=== PATIENT | male | born 1935 | race Caucasian/White ===

== ENCOUNTER 2019-06-16 11:37 | Inpatient (IN) ==
[2019-06-16 12:26] LABS: BASO# 0.04 X1000 (0.0-0.2); BASO% 0.6 % (0.0-0.8); EOS# 0.29 X1000 (0.0-0.7); HEMATOCRIT 38.1 % (42.0-52.0); HEMOGLOBIN 12.6 g/dL (14.0-18.0); IMM GRAN# 0.02 X1000 (0.0-0.04); IMM GRAN% 0.3 % (0.0-0.5); LYMPH# 1.71 X1000 (1.2-3.4); LYMPH% 23.5 % (20.5-51.1); MCH 30.1 PG (27-31); MCHC 33.1 g/dL (33-37); MCV 90.9 FL (81-99); MONO# 0.59 X1000 (0.11-0.59); MONO% 8.1 % (1.7-9.3); NEUT# 4.62 X1000 (1.4-6.5); NEUT% 63.5 % (42.2-75.2); PLT 191 X1000 (130-400); RBC 4.19 XMIL (4.7-6.1); RDW 15.2 % (11.5-14.5); WBC 7.27 X1000 (4.8-10.8)
[2019-06-16 12:34] LABS: INR 1.01; PROTIME 13.4 Seconds (11.0-16.0)
[2019-06-16 12:35] LABS: PTT 29.4 Seconds (22.3-41.8)
--- NOTE | 2019-06-16 12:38 | Diag Imaging Result Doc PS360 ---
EXAM: CT ABDOMEN/PELVIS W/O CONTRAST 06/16/2019 HISTORY: FLANK PAIN TECHNIQUE: This exam was performed using automated exposure control, adjustment of mA or kV according to patient size, and/or use of iterative reconstruction technique. COMMENT: The current study is compared with 01/08/2013. There is apparent atelectasis in the inferior lingula and lower lobes particularly the left lower lobe. This was not present at the time the previous study. There is a small hiatal hernia. There are small calcified stones layering dependently in the gallbladder neck. There is marked renal atrophy with what appear to be cortical cysts on the left. There is an isodense mass in the mid right renal cortex measuring 2.6 cm in diameter. This was not present at the time the previous study and may represent a solid renal neoplasm. The urinary bladder is not distended but is somewhat thickened in appearance. There are bilateral fat-containing inguinal hernias. There is no evidence of free fluid. There is a penile prosthesis reservoir anteriorly in the pelvis. There is no evidence of appendicitis or bowel obstruction. There is marked diverticulosis in the descending colon and proximal sigmoid colon. There is no definite evidence of diverticulitis. There is stool throughout the colon. There is ankylosis of the symphysis pubis. There are degenerative disc and facet changes in the lumbar spine. IMPRESSION: No evidence of urolithiasis or obstructive uropathy. Constipation. Diverticulosis coli. Possible solid renal neoplasm on the right. Cholelithiasis. Electronically signed by Mitchell Us 06/16/2019 12:35 PM
--- NOTE | 2019-06-16 12:46 | Diag Imaging Result Doc PS360 ---
EXAM: CHEST-1 VIEW 06/16/2019 HISTORY: SOB TECHNIQUE: AP chest COMMENT: There is apparent fibrosis in the left base which was also present on 06/04/2019. There has been no significant change in the appearance of the chest. IMPRESSION: Stable chest. Electronically signed by Mitchell Us 06/16/2019 12:43 PM
[2019-06-16 12:52] LABS: POTASSIUM 3.9 mmol/L (3.5-5.1)
[2019-06-16 12:53] LABS: ALB/GLOB RATIO 1.3; ALBUMIN 3.6 g/dL (3.5-5.0); CREATININE 4.2 mg/dL (0.7-1.2); MAGNESIUM 2.3 mg/dL (1.5-2.7); TOTAL BILIRUBIN 0.36 mg/dL (0.20-1.00); TOTAL PROTEIN 6.3 g/dL (6.3-8.3)
--- NOTE | 2019-06-16 13:31 | PROVIDER DOCUMENTATION ---
This chart was entered by Katie Wolf Scribe, acting as scribe for Edy Petersen MD. HPI-Abdominal Pain/GI Problem - General Chief Complaint: Rectal Bleeding Stated Complaint: PASSING BLOOD Time Seen by Provider: 06/16/19 11:54 Source: patient Allergies/Adverse Reactions: Patient Allergies Allergy/AdvReac Type Severity Reaction Status Date / Time levofloxacin [From Levaquin] Allergy Mild RASH Verified 02/03/19 00:42 rofecoxib [From Vioxx] Allergy Mild SWELLING Verified 02/03/19 00:42 Sulfa (Sulfonamide Allergy Mild RASH Verified 02/03/19 00:42 Antibiotics) [Sulfa(Sulfonamide Antibiotics)] Home Medications: Home Medication List Medication Instructions Recorded Confirmed Last Taken Type Carvedilol [Coreg] 25 mg PO DAILY 07/05/15 02/03/19 01/28/19 19:00 History Furosemide [Lasix] 20 mg PO DAILY 07/05/15 02/03/19 01/27/19 History Insulin Lispro [Humalog] 1 unit SUBQ DIRECTED 07/05/15 02/03/19 01/28/19 13:00 History Losartan [Cozaar] 50 mg PO DAILY 07/05/15 02/03/19 01/28/19 08:00 History Multivit-Min/FA/Lycopen/Lutein 1 each PO DAILY 07/05/15 02/03/19 01/28/19 08:00 History [Centrum Silver Ultra Men's Tab] Simvastatin 20 mg PO QPM 07/05/15 02/03/19 01/27/19 History Insulin Glargine,Hum.rec.anlog 15 unit SQ BID 08/16/17 02/03/19 01/28/19 10:00 History [Basaglar Kwikpen U-100] Melatonin 10 mg PO QHS PRN 08/27/18 02/03/19 01/27/19 History Brimonidine/Timolol Ophth Soln 1 drp BOTH EYES BID 01/24/19 02/03/19 01/28/19 23:00 History [Combigan Ophth Soln] Latanoprost/Pf [Latanoprost 0.005% 1 drp BOTH EYES QHS 01/24/19 02/03/19 01/28/19 23:00 History Eye Drop] - History of Present Illness-ABD Nature of Presenting Problems: 83 year old male presents to the ER with complaint of rectal bleeding that started this am. Pt is currently receiving chemotherapy for melanoma cancer and is a dialysis pt (M, W, F). Pt states he has had several similar episodes in the past of rectal bleeding from diverticulitis. Pt states this am his BM was maroon in color and he passed some blood clots as well. Pt complains of lower abdominal pain. Abdominal Pain Onset Location: reports: RLQ, LLQ Quality of Pain: reports: aching Onset/Duration: reports: this morning Timing: reports: still present Associated Symptoms: reports: other (rectal bleeding) Last BM: this morning Dark Stools Present?: reports: maroon Rectal Bleeding: reports: bleeding without stool (blood clots) Review of Systems - Adult - REVIEW OF SYSTEMS - ADULT Constitutional: denies: chills, fever Gastrointestinal: reports: abdominal pain, rectal bleeding. denies: vomiting Past History - Adult - PAST MEDICAL HISTORY-ADULT Review of Records: reports: Nursing Assessment Review, Medications Reviewed Major Childhood Illnesses: reports: denies history Cardiovascular: reports: HTN Respiratory: reports: sleep apnea Gastrointestinal: reports: denies history Obstetrical/Gynecological: reports: denies history Genitourinary: reports: dialysis, kidney disease (decreased renal function), prostate cancer Musculoskeletal: reports: denies history Neurological: reports: denies history Endocrine/Immune: reports: Diabetes Other Conditions: reports: skin disorder - PRIOR SURGERIES/PROCEDURES Surgical/Procedure History: reports: tonsillectomy, hernia repair, other (prostectomy, urinary sphintcer) - IMMUNIZATION STATUS Childhood Immunizations: See Nurse Assessment Flu Vaccine: See Nurse Assessment - FAMILY HISTORY Family History: reviewed, not pertinent Physical Exam-General - PHYSICAL EXAM-ADULT Initial Vital Signs Reviewed: Yes - CONSTITUTIONAL General Appearance: alert, no apparent distress - EYES Eyes: PERRL/EOMI, pink conjunctivae - HEAD, EARS, NOSE, MOUTH & THROAT HENMT: normocephalic/atraumatic, moist mucous membranes, normal ENT inspection - NECK Neck: supple - RESPIRATORY Respiratory: lungs clear, normal breath sounds - CARDIOVASCULAR Cardiovascular: normal peripheral pulses, regular rate, rhythm - GASTROINTESTINAL (ABDOMEN) Abdominal Exam: negative: guarding, rebound - MUSCULOSKELETAL Back Exam: no CVA tenderness, no vertebral tenderness - SKIN Integumentary: normal turgor, warm/dry - NEUROLOGIC Neurologic: grossly normal, no motor/sensory deficits - PSYCHIATRIC Psych/Mental Status: normal mood/affect, normal thought content, normal thought process, oriented x 3 Progress - PLAN OF CARE/RESULTS Progress/Plan/Lab Results: Vital Signs - 8 hr 06/16/19 11:40 Temperature 97.8 F Pulse Rate 94 H Respiratory Rate 18 Blood Pressure 173/94 O2 Sat by Pulse Oximetry 94 L Result Diagrams: 06/16/19 12:04 06/16/19 12:04 - REASSESSMENT Reassessment #1 Time Reassessed: 13:15 Status: improving (REMAINS ALERT. STABLE IN ER . NORMAL MENTAL STATUS) - EKG 1 Time of EKG reading by physician:: 13:27 EKG Read and Signed by:: Edy Petersen EKG Interpretation (*Must complete 3 of following elements*): Abnormal Rate: 75 Rhythm: normal sinus rhythm QRS: RBB (Incomplete), LVH Comments: possible left atrial enlargement - XRAY 1 XRAY Study: Chest Impression: Normal, See EMR Report (EXAM: CHEST-1 VIEW 06/16/2019 HISTORY: SOB TECHNIQUE: AP chest COMMENT: There is apparent fibrosis in the left base which was also present on 06/04/2019. There has been no significant change in the appearance of the chest. IMPRESSION: Stable chest) XRAY Interpretation: per radiologist - CT/MRI 1 CT Study: Abdomen, Pelvis Impression: Abnormal, See EMR Report (EXAM: CT ABDOMEN/PELVIS W/O CONTRAST 06/16/2019 HISTORY: FLANK PAIN TECHNIQUE: This exam was performed using automated exposure control, adjustment of mA or kV according to patient size, a nd/or use of iterative reconstruction technique. COMMENT: The current study is compared with 01/08/2013. There is apparent atelectasis in the inferior lingula and lower lobes particularly the left lower lobe. This was not present at the time the previous study. There is a small hiatal hernia. There are small calcified stones layering dependently in the gallbladder neck. There is marked renal atrophy with what appear to be cortical cysts on the left. There is an isodense mass in the mid right renal cortex measuring 2.6 cm in diameter. This was not present at the time the previous study and may represent a solid renal neoplasm. The urinary bladder is not distended but is somewhat thickened in appearance. There are bilateral fat-containing inguinal hernias. There is no evidence of free fluid. There is a penile prosthesis reservoir anteriorly in the pelvis. There is no evidence of appendicitis or bowel obstruction. There is marked diverticulosis in the descending colon and proximal sigmoid colon. There is no definite evidence of diverticulitis. There is stool throughout the colon. There is ankylosis of the symphysis pubis. There are degenerative disc and facet changes in the lumbar spine. IMPRESSION: No evidence of urolithiasis or obstructive uropathy. Constipation. Diverticulosis coli. Possible solid renal neoplasm on the right. Cholelithiasis.) CT Results: per radiologist - CONSULTS/PCP/HOSPITALIST Notification #1 *Consult/PCP/Hospitalist*: QUIRINO Vides Time Discussed: 13:19 Reason/Comments: Agreed to Admit Consult Disposition: Admit Departure - Departure Date of Disposition Decision: 06/16/19 Time of Disposition Decision: 13:14 DIAGNOSIS: GI bleed Disposition: ADMITTED INPATIENT 09 Certified Medical Emergency: Emergent Condition: Fair Referrals and Follow-Ups: None,PCP [Primary Care Provider] - - Critical Care Note This patient required my direct & personal management of CC.: No Attestation - Physician/ LILIAM Attestation Patient care was provided by Advanced Practice Provider:: No The physician spent face to face time with patient:: Yes Advanced Practice Provider documentation review:: Supervising physician onsite and consulted in the evaluation and care of this patient. The physician did have a face to face encounter with the patient. This chart was documented by the indicated scribe, (Katie Wolf, Miriam) and accurately reflects the services I performed and decisions made by me, Edy Petersen MD, as attested by the provider's signature.
[2019-06-16] MEDS ORDERED: ZOFRAN IV PRN (14:12)
--- NOTE | 2019-06-16 14:58 | EKG Report ---
Test Performed on : 06/16/2019 1:21:11 PM Test Reason : SOB Blood Pressure : / mmHG Vent. Rate : 075 BPM Atrial Rate : 075 BPM P-R Int : 144 ms QRS Dur : 094 ms QT Int : 390 ms P-R-T Axes : 037 -26 018 degrees QTc Int : 435 ms Normal sinus rhythm. Possible Left atrial enlargement Incomplete right bundle branch block Left ventricular hypertrophy Abnormal ECG When compared with ECG of 09-JUN-2019 21:58, (Unconfirmed) Minimal criteria for Septal infarct are no longer present Unconfirmed Result
--- NOTE | 2019-06-16 16:00 | HISTORY AND PHYSICAL ---
CHIEF COMPLAINT: Blood in stool. HISTORY OF PRESENT ILLNESS: This is a very pleasant, 83-year-old gentleman with a prior history of prostate cancer; end-stage renal disease on Monday, Monday, Monday hemodialysis; recent melanoma who is currently receiving chemotherapy per Dr. Espinoza. He presents to the emergency room after having 2 large bowel movements that were bright red blood with clots after having 2 bowel movements that were maroon color with clots. He has developed some bilateral lower quadrant pain that he stated was relieved after having a bowel movement. Since being in the emergency room, he has had no prior bleeding, although he has had some intermittent aching to bilateral lower quadrants. He states he has done this many years ago having a bleed from diverticulitis. He denies any recent black stools or any constipation. PAST MEDICAL HISTORY: 1. Prostate cancer. 2. Skin cancer. 3. Diabetes mellitus type 2. 4. End-stage renal disease on Monday, Monday, Monday hemodialysis. 5. Hyperlipidemia. 6. Hypertension. 7. Sleep apnea. 8. Prior TIA. 9. Glaucoma. PAST SURGICAL HISTORY: Cataract removal, hernia repair, and transurethral resection of prostate. SOCIAL HISTORY: He denies alcohol, tobacco, or illicit drugs. He is and lives with his . ALLERGIES: Sulfa and Levaquin which cause a rash. Vioxx which causes swelling. HOME MEDICATIONS: List will be obtained by the nursing staff and once verified will be restarted as appropriate. REVIEW OF SYSTEMS: Discussed with patient with pertinent positives stated in HPI. He denied any syncope, dizziness, chest pain, palpitations; any cough, fever, chills, shortness of breath;/ any PND, orthopnea; any nausea, vomiting, diarrhea, constipation; black or bloody vomitus; any hematuria, dysuria, frequency, or urgency. PHYSICAL EXAMINATION: GENERAL: This is an 83-year-old gentleman who is sitting up on the stretcher in the emergency room in no distress. VITAL SIGNS: Blood pressure is 173/90 with heart rate of 94, respirations 18, temperature is 97.8 degrees with room air saturations 94% to 98%. HEENT: Head is normocephalic, atraumatic. Mucous membranes are moist. NECK: Supple. Trachea midline. CARDIOVASCULAR: Regular rate and rhythm. S1 and S2 appreciated. He has no lower extremity edema. Calves are nontender bilateral. Peripheral pulses palpable x4 extremities. PULMONARY: Breath sounds are clear with no increased work of breathing noted. GASTROINTESTINAL: Abdomen is soft. He is tender to palpation to right lower quadrant and suprapubic area. He is nondistended with bowel sounds in all 4 quadrants. NEUROLOGIC: He is alert and oriented x3. SKIN: Warm and dry. LABS: WBC is 7.2 with hemoglobin 12.6, hematocrit 38.1, and platelets of 191,000. Sodium 139, potassium 3.9, BUN 46, creatinine 4.2, with a glucose of 265. CT of the abdomen and pelvis revealed no evidence of urolithiasis or obstructive uropathy, constipation, diverticulosis coli, possible solid renal neoplasm on the right, cholelithiasis. ASSESSMENT AND PLAN: 1. Gastrointestinal bleed. The patient will be admitted to the hospital. We will check hemoglobin and hematocrit at 8:00 tonight. Recheck in the morning. We will consult Dr. Cui as he is established with him. We will give Protonix IV q.12 hours. 2. Chronic kidney disease with Monday, Monday, Monday hemodialysis. We will consult Dr. Frank for medical management. 3. Melanoma currently receiving treatment. We will consult Dr. Espinoza in the morning. 4. A 2.6 cm isodense mass in the mid right renal cortex that is possibly new. I have discussed this with Dr. Espinoza. He is aware. He will follow. 5. Diabetes mellitus type 2. He will be placed on pattern blood glucose with sliding scale insulin. 6. Hypertension. We will identify his home medications and continue as appropriate. 7. For DVT prophylaxis, we will use SCDs. 8. We will identify his home medications and continue as appropriate. 9. We will check a CBC and renal profile daily. 10. Plan was discussed with Dr. Huffman. Further treatments pending hospital course. Patient seen and examined by me face to face, all the laboratory, vitals signs and images were reviewed, Patient presented to the emergency department with bloody stools X 2, he is asymptomatic, no dizziness, no palpitations, no abdominal discomfort, he has a history of cancer followed by Dr Espinoza, also he has a history of ESRD on dialysis, he will be admitted to the medical floor, GI and nephrology will be consulted, we will monitor the H&H, monitor this patient closely, Mustapha Sheppard MD Dictated by QUIRINO Garcia for Mustapha Low MD cc: QUIRINO Garcia MD [facility]
[2019-06-16] MEDS: PROTONIX IV SCH (16:15)
[2019-06-16] MEDS: SODIUM CHLORIDE 0.9% INJ SCH (16:15)
[2019-06-16] MEDS: NS 1,000 ML IV SCH (16:16)
[2019-06-16] MEDS: HUMALOG SUBQ SCH ×2 (18:00→21:11)
[2019-06-16 20:10] LABS: HEMATOCRIT 37.1 % (42.0-52.0); HEMOGLOBIN 11.6 g/dL (14.0-18.0)
[2019-06-16] MEDS: XALATAN 0.005% OPH SOLN BOTH EYES SCH (21:11)
[2019-06-16] MEDS: COMBIGAN OPHTH SOLN BOTH EYES SCH (21:11)
[2019-06-17] MEDS: PROTONIX IV SCH ×2 (03:16→18:36)
[2019-06-17] MEDS: NS 1,000 ML IV SCH (03:40)
[2019-06-17] MEDS: HUMALOG SUBQ SCH ×4 (06:32→21:13)
[2019-06-17 07:02] LABS: BASO# 0.03 X1000 (0.0-0.2); BASO% 0.4 % (0.0-0.8); EOS# 0.34 X1000 (0.0-0.7); EOS% 4.7 % (0.0-10.0); HEMATOCRIT 38.9 % (42.0-52.0); HEMOGLOBIN 12.5 g/dL (14.0-18.0); LYMPH# 1.35 X1000 (1.2-3.4); LYMPH% 18.6 % (20.5-51.1); MCH 29.5 PG (27-31); MCHC 32.1 g/dL (33-37); MCV 91.7 FL (81-99); MONO# 0.63 X1000 (0.11-0.59); MONO% 8.7 % (1.7-9.3); MPV 9.3 FL (7.4-10.4); NEUT# 4.91 X1000 (1.4-6.5); NEUT% 67.6 % (42.2-75.2); PLT 180 X1000 (130-400); RBC 4.24 XMIL (4.7-6.1); RDW 15.3 % (11.5-14.5); WBC 7.26 X1000 (4.8-10.8)
[2019-06-17 07:25] LABS: ALBUMIN 3.4 g/dL (3.5-5.0); CALCIUM 8.7 mg/dL (8.8-10.2); CREATININE 5.2 mg/dL (0.7-1.2); PHOSPHORUS 5.4 mg/dL (2.7-4.5); POTASSIUM 4.1 mmol/L (3.5-5.1)
[2019-06-17] MEDS ORDERED: TIGHT: 0.2 ML/HR FOR DIALYSIS MISC PRN (07:41)
[2019-06-17] MEDS ORDERED: HEPARIN IV PRN (07:41)
[2019-06-17] MEDS ORDERED: NS 2,000 ML MISC PRN (07:41)
[2019-06-17] MEDS: COMBIGAN OPHTH SOLN BOTH EYES SCH ×2 (08:46→21:13)
[2019-06-17] MEDS: COREG PO SCH (08:48)
--- NOTE | 2019-06-17 10:11 | CONSULTATION ---
DATE OF CONSULTATION: 06/17/2019 REASON FOR ADMISSION: Melena. REASON FOR CONSULTATION: ESRD, assist with management. CONSULTING PHYSICIAN: Dr. Huffman. HISTORY OF PRESENT ILLNESS: This is an 83-year-old gentleman, well known to our service for end- stage renal disease, on dialysis Monday, Monday, Monday at the [facility]. The patient was recently diagnosed with melanoma, and is receiving chemotherapy per Dr. Espinoza. He came into the emergency room on the day of admission secondary to blood in the stool. This was maroon in color with clots. He has had no further bleeding noted. He was admitted for further workup and treatment. We have been asked to see him and assist with management and maintain his dialysis schedule. This morning, he is awake and alert. He denies any nausea or vomiting, and states he would like to eat breakfast before he goes to his dialysis treatment. PAST MEDICAL HISTORY: Prostate cancer, melanoma, diabetes type 2, hyperlipidemia, hypertension, sleep apnea, TIA, glaucoma, and end-stage renal disease on dialysis Monday, Monday, Monday. PAST SURGICAL HISTORY: Cataract removal, hernia repair, and TURP. ALLERGIES: Levaquin, Vioxx, sulfa. HOME MEDICATIONS: Listed as simvastatin, Centrum, Lasix, Cozaar, Humalog insulin, Phenergan, melatonin, Combigan, latanoprost, Norvasc, vitamin D3. FAMILY HISTORY: Noncontributory. SOCIAL HISTORY: No ETOH, tobacco, or illicit drug use. He is . He lives with his . There is no family today at the bedside. REVIEW OF SYSTEMS: Bloody stools, otherwise negative. PHYSICAL EXAMINATION: Vital Signs: Temperature 98.9 degrees, pulse 80, respiratory rate 17, blood pressure 138/57. Intake was 900 mL. Output has not been measured. General: This is an elderly gentleman, sitting up in the bed. He is awake and alert. He is in no acute distress. HEENT: Normocephalic, atraumatic. JANIYA. Conjunctivae are pale. His oral mucosa is moist. Neck: Supple. There is no JVD. Cardiovascular: Regular rate and rhythm. There is no murmur noted. Pulmonary: He is clear bilaterally. He has no increased work of breathing. Abdomen: Soft with positive bowel sounds. Denies tenderness, other than right lower quadrant. : He is voiding. Extremities: There is no clubbing, cyanosis, edema. Integumentary: His skin is warm and dry. Neurologic: Grossly nonfocal. LABORATORY DATA: WBC 7.2, hemoglobin 12.5. Sodium 143, potassium 4.1, CO2 of 22, creatinine 5.2. IMAGING: CT of the abdomen and pelvis with no obstructive uropathy. ASSESSMENT AND PLAN: 1. Chronic kidney disease 5D. Today is his routine dialysis day. Will dialyze him on a 2- potassium bath/ultrafiltrate to his dry weight, 3.5 hour treatment. 2. Gastrointestinal bleed. Followed by primary and Gastroenterology. 3. Electrolytes and acid-base balance. These are acceptable. Continue with routine dialysis for management. 4. Melanoma. Follow with Dr. Espinoza. His nurse practitioner saw him today. 5. Fluid volume. He is not overloaded. Dictated by QUIRINO Hernandez for Juan Daniel Frank MD Face to face encounter, data reviewed, discussed with Bipin Rodney on 06/17/19. I agree with the above assessment and plan of care. cc: Juan Daniel Frank MD [facility]
--- NOTE | 2019-06-17 13:21 | HEMO/ONC CONSULTATION ---
DATE: 06/17/2019 CHIEF COMPLAINT: Blood in stool. HISTORY OF PRESENT ILLNESS: Mr. Singh is a pleasant, 83-year-old male whom we treat in the office for unresectable squamous cell skin cancer. He also has end-stage renal disease and does dialysis on Monday, Monday, Monday. He is followed by Dr. Frank. On Monday afternoon, he presented to the ER after having 2 large bowel movements that were bright red in color with clots, as well as 2 bowel movements which were maroon in color. He states he had some bilateral lower quadrant pain that was relieved after having a bowel movement. He has not had any further bleeding since coming to the ER. He does mention that he has had a past history of diverticulitis. We currently treat the patient in the clinic for unresectable squamous skin cancer with Libtayo, an immunotherapy, every 3 weeks. The patient's last treatment was June 06. He has not had any complications, adverse reactions, or side effects to his treatment. PAST MEDICAL HISTORY: Prostate cancer with prostatectomy, diabetes, hypertension, end-stage renal disease with dialysis Monday, Monday, Monday, squamous cell skin cancer, hyperlipidemia, sleep apnea, prior TIA, and glaucoma. PAST SURGICAL HISTORY: Cataract removal, hernia repair, prostatectomy. SOCIAL HISTORY: He denies alcohol, tobacco, or illicit drug use. ALLERGIES: Sulfa drugs, Levaquin, and Vioxx. HOME MEDICATIONS: Norvasc, Combigan ophthalmic solution, weekly vitamin D2, Lasix, insulin glargine, insulin lispro, latanoprost eyedrops, losartan, melatonin, Centrum Silver, and simvastatin. REVIEW OF SYSTEMS: The pertinent positives are stated in the HPI. VITAL SIGNS: Temperature 99.7 degrees, pulse rate 76, respiratory rate 16, blood pressure 191/59, O2 saturation 98% on room air. He is currently in 0/10 pain. PHYSICAL EXAMINATION: General: Elderly gentleman in no acute distress. Well- developed, well- nourished. Skin: [place], warm, dry, and intact without rashes or lesions. There are healing stages of skin cancer to his head and face. HEENT: Sclerae are anicteric. PERRLA. Oral mucosa is pink and moist. Cardiovascular: Normal S1, S2. Heart rate and rhythm regular. Respiratory: No signs of respiratory distress. Lung sounds are clear to auscultation. Abdomen: Soft, nontender without distention. Lymphatic: No lymphadenopathy appreciated to neck or axillae. Neurological: Awake, alert, and oriented. No gait abnormalities appreciated. LABORATORY: WBCs 7.26, hemoglobin 12.5, hematocrit 38.9, platelet count 180,000, ANC 4.91. Creatinine 5.2, calcium 8.7, phosphorus 5.4. RADIOLOGY: CT of abdomen and pelvis without contrast shows diverticulosis coli and possible solid renal neoplasm on the right. Chest x-ray shows no significant changes since his last chest x-ray with no acute abnormalities. ASSESSMENT: 1. Gastrointestinal bleed. 2. Chronic kidney disease with Monday, Monday, Monday hemodialysis. 3. Unresectable squamous cell skin cancer, on immunotherapy currently. 4. Right solid renal neoplasm. PLAN: Treat the patient per Dr. Cui and medical management for the GI bleeding. We will follow up with the patient in the clinic for a possible PET scan and further management. Dictated by QUIRINO Jaquez for Guanakito Espinoza MD Patient seen and examined. As above. Patient known to us for unresectable squamous cell carcinoma. He is on immunotherapy with excellent response. He presented with GI bleeding. H and H is stable today. Dr. Cui has been consulted. CT scan of the abdomen pelvis reveals a small right solid renal mass. We will continue to monitor this for now. He does not require any therapy for this. Guanakito Espinoza M.D. cc: Guanakito Espinoza MD [facility]
[2019-06-17] MEDS: NORVASC PO SCH ×2 (13:58→21:13)
[2019-06-17] MEDS: COZAAR PO SCH ×2 (13:59→21:13)
[2019-06-17] MEDS: LASIX PO SCH (14:00)
--- NOTE | 2019-06-17 14:14 | GASTROENTEROLOGY CONSULTATION ---
DATE: 06/17/2019 REASON FOR CONSULTATION: Blood in the stool. HISTORY OF PRESENT ILLNESS: This is an 83-year-old, male who we had seen in the past for a colonoscopy. He had a colonoscopy in March 2017, indications at that time for diarrhea. Findings showed diverticulosis with no evidence of colon polyps. Patient is seen at the time of evaluation in the dialysis unit. He is receiving dialysis. He has been on dialysis following with Dr. Frank for approximately 3 years. He receives dialysis on Mondays, Wednesdays, and Fridays. The patient has also had recent diagnosis of melanoma and has been following with Dr. Espinoza for chemotherapy. He reports having 2 bowel movements that were bright red/maroon color with clots noted. Since admission, he has had no further bowel movements or rectal bleeding. He did report some lower abdominal pain/cramping. Currently his hemoglobin and hematocrit have been stable since admission. Hemoglobin and hematocrit on admission were 11.6 in 37.1. Today, his hemoglobin and hematocrit are 12.5 and 38.9. The patient has not received packed red blood cells. The patient had denied nausea or vomiting. No reported hematemesis. No reported fever. Patient does report having rectal bleeding in the past, possibly related to diverticulitis. As noted, his last colonoscopy was in 2016 that showed diverticulosis. PAST MEDICAL HISTORY: 1. History of prostate cancer. 2. Recent melanoma, following with Dr. Espinoza for chemotherapy. 3. Diabetes. 4. End-stage renal disease on dialysis. 5. Hyperlipidemia. 6. Hypertension. 7. Sleep apnea. 8. History of TIA. 9. Glaucoma. PAST SURGICAL HISTORY: 1. Cataract removal. 2. Hernia repair. 3. Prostate resection. 4. Colonoscopy in 2017 showing diverticulosis. ALLERGIES: 1. Levaquin causing a rash. 2. Vioxx causing swelling. 3. Sulfonamide antibiotics causing rash. HOME MEDICATIONS: 1. Norvasc 2.5 mg twice a day. 2. Eye drops twice a day. 3. Vitamin D 50,000 units every 7 days. 4. Lasix 20 mg daily. 5. Insulin 15 units twice a day. 6. Eye drops. 7. Losartan 50 mg every night. 8. Losartan 100 mg every morning. 9. Melatonin 10 mg every night as needed. 10. Centrum Men's multivitamin daily. 11. Simvastatin 20 mg every night. SOCIAL HISTORY: He is . No reported tobacco or alcohol use. REVIEW OF SYSTEMS: Per history of present illness. PHYSICAL EXAMINATION: Vital Signs: Temperature 99.7 degrees, pulse 76, respirations 16, blood pressure 191/59. General: Patient is awake and alert. No acute distress. He was seen in the dialysis unit receiving dialysis. HEENT: Normocephalic, atraumatic. Pupils equal, round, reactive to light. Sclerae nonicteric. Cardiovascular: Regular rate and rhythm. Respiratory: Lung sounds essentially clear. Gastrointestinal: Abdomen is soft. He does have some tenderness in the lower abdomen. Positive bowel sounds. Neurological: Cranial nerves 2-12 grossly intact. Patient is alert and oriented to person, place, and time. DIAGNOSTIC RESULTS/LABORATORY: Hematology: WBC 7.26, hemoglobin 12.5, hematocrit 38.9, MCV 91.7. Coagulation: ProTime 13.4, INR 1.01. PTT 29.4. Chemistry: Sodium 143, potassium 4.1, chloride 108, CO2 of 22, BUN 51, creatinine 5.2, glucose 180, calcium 8.7, phosphorus 5.4, magnesium 2.3, total bilirubin 0.36, AST 14, ALT 12: Alkaline phosphatase 112, albumin 3.4. ASSESSMENT AND PLAN: 1. Recent rectal bleeding. Patient has not had any further bleeding since admission. His hemoglobin and hematocrit are stable. Continue PPI. Will continue to monitor for further bleeding. Monitor hemoglobin and hematocrit. Transfuse packed red blood cells if needed. 2. Diverticulosis by colonoscopy in 2017. 3. Melanoma, following with Dr. Espinoza. 4. CT scan showing no evidence of urolithiasis. Constipation noted, diverticulosis. There was a possible solid renal neoplasm on the right and cholelithiasis. I believe Dr. Espinoza is aware of these findings. 5. Other medical problems: Diabetes, hypertension, end-stage renal disease, following with Nephrology for his routine dialysis. PLAN: We will continue to follow his hemoglobin and hematocrit and follow for further active bleeding. At this time, we will not pursue endoscopy unless bleeding returns or his hemoglobin and hematocrit drop. We will continue to follow. Further plans will be made as needed. I have discussed this case with Dr. Cui. Thank you for this consultation. Dictated by QUIRINO Ramsey for Keith Cui MD cc: QUIRINO Verde MD
--- NOTE | 2019-06-17 17:02 | PROGRESS NOTE ---
DATE: 06/17/2019 SUBJECTIVE: He has no primary care physician, but he was admitted here. He had noticed blood in his stool. He is an 83-year-old gentleman with a prior history of prostate cancer, end-stage renal disease, gets dialysis Mondays, Wednesdays, and Fridays, hemodialysis. Recently he had melanoma, receiving chemotherapy per Dr. Espinoza. Presented to the emergency room for 2 large bowel movements with bright red blood and clots after 2 bowel movements that were maroon in color with clots. He developed some bilateral lower quadrant pain that was relieved after his bowel movement. Since be in the emergency room he has had no other bleeding. He has not had any bleeding since he has been here by his report. PAST MEDICAL HISTORY: Reviewed again. 1. Prostate cancer. 2. Skin cancer, melanoma. 3. Diabetes mellitus type 2. 4. End-stage renal disease, on dialysis Mondays, Wednesdays, Fridays. 5. Hyperlipidemia. 6. Hypertension. 7. Sleep apnea. 8. Prior TIA. 9. Glaucoma. PAST SURGICAL HISTORY: Cataract removed, hernia repair, transurethral resection of prostate. So admitted with gastrointestinal bleed. OBJECTIVE: General: On exam today he is comfortable. He had dialysis today. Vital signs: Temp 97.7 degrees, pulse 76, respirations 16, blood pressure 191/59, previous 1 was 185/69. HEENT: Pupils are equal and round. Lungs: Clear in all lung bunch. Cardiovascular: Regular rhythm and rate without murmur or S3. LABORATORY: Blood sugar 274 and 165. His blood counts when he presented, white count 7,270, hematocrit 38, platelet count 191,000. Hematocrit has remained stable at 38. Dr. Cui has evaluated. ASSESSMENT AND PLAN: 1. Recent rectal bleeding. He has not had any further bleeding since admission. We will follow hemoglobin and hematocrit. Continue proton pump inhibitor. Transfuse packed red blood cells if needed. 2. Diverticulosis by colonoscopy in 2017. 3. Melanoma. Has been treated by Dr. Espinoza. Under treatment at this time with chemotherapy. 4. CT scan showed no evidence of urolithiasis. Constipation was noted and diverticulosis. There is a possible solid renal neoplasm on the right and there is some cholelithiasis. Dr. Espinoza is following. 5. End-stage renal disease, chronic kidney disease stage 5. Getting hemodialysis. His volume status and electrolytes look appropriate. 6. Hypertension. 7. Gastrointestinal blood loss. As mentioned above and follow hemoglobin and hematocrit. 8. In looking at his orders, he gets Cozaar 50 mg at bedtime, Norvasc 2.5 mg b.i.d., Coreg 25 mg p.o. daily, Lasix 20 mg a day, Cozaar 100 mg q.a.m. and then he gets 50 mg at bedtime, Protonix 40 mg IV q.12. Blood pressure is running a little bit high, will watch. cc: Bj Vázquez MD
[2019-06-17] MEDS: XALATAN 0.005% OPH SOLN BOTH EYES SCH (21:18)
[2019-06-18] MEDS: HUMALOG SUBQ SCH ×4 (06:10→20:57)
[2019-06-18] MEDS: PROTONIX IV SCH ×2 (06:16→17:20)
[2019-06-18 07:26] LABS: BASO# 0.03 X1000 (0.0-0.2); BASO% 0.4 % (0.0-0.8); EOS# 0.29 X1000 (0.0-0.7); EOS% 3.8 % (0.0-10.0); HEMATOCRIT 42.5 % (42.0-52.0); HEMOGLOBIN 13.7 g/dL (14.0-18.0); IMM GRAN# 0.02 X1000 (0.0-0.04); IMM GRAN% 0.3 % (0.0-0.5); LYMPH# 1.51 X1000 (1.2-3.4); LYMPH% 19.9 % (20.5-51.1); MCH 29.7 PG (27-31); MCHC 32.2 g/dL (33-37); MCV 92.2 FL (81-99); MONO# 0.63 X1000 (0.11-0.59); MONO% 8.3 % (1.7-9.3); MPV 9.2 FL (7.4-10.4); NEUT% 67.3 % (42.2-75.2); PLT 188 X1000 (130-400); RBC 4.61 XMIL (4.7-6.1); RDW 15.4 % (11.5-14.5); WBC 7.58 X1000 (4.8-10.8)
[2019-06-18 07:53] LABS: CALCIUM 9.2 mg/dL (8.8-10.2); CREATININE 4.2 mg/dL (0.7-1.2); PHOSPHORUS 4.5 mg/dL (2.7-4.5); POTASSIUM 3.8 mmol/L (3.5-5.1)
--- NOTE | 2019-06-18 08:26 | NEPHROLOGY CONSULTATION ---
DATE: 06/18/2019 SUBJECTIVE: Patient resting in bed. He states he has not gotten up out of bed yet. Underwent dialysis yesterday without difficulty. OBJECTIVE: Vital Signs: Temperature 98 degrees, pulse 81, respiratory rate 19, blood pressure 131/77. Intake 200 mL; output not measured. General: This is an elderly gentleman resting in bed. He is awake and alert. He is in no acute distress. HEENT: Normocephalic, atraumatic. JANIYA. Neck: Supple without JVD. Cardiovascular: Regular rate and rhythm. Pulmonary: Clear bilaterally. Abdomen: Soft, with positive bowel sounds. : Not inspected. Extremities: No clubbing, cyanosis or edema. Integumentary: Skin is warm and dry. LAB DATA: Pending. ASSESSMENT AND PLAN: 1. Chronic kidney disease 5 D. He dialyzed yesterday without difficulty. We will plan to continue on his routine dialysis while he is in the hospital. 2. Gastrointestinal bleed followed by Primary and Gastroenterology. 3. Melanoma followed by Dr. Espinoza. 4. Deconditioning. We have requested that a chair be placed in the patient's room that he is able to safely get up to and sit for meals. Dictated by QUIRINO Hernandez for Juan Daniel Frank MD Face to face encounter, data reviewed, discussed with Bipin Rodney on 06/18/19. I agree with the above assessment and plan of care. cc: Juan Daniel Frank MD [facility]
[2019-06-18] MEDS: COMBIGAN OPHTH SOLN BOTH EYES SCH ×2 (08:53→20:20)
[2019-06-18] MEDS: COZAAR PO SCH ×2 (08:55→20:19)
[2019-06-18] MEDS: COREG PO SCH (08:56)
[2019-06-18] MEDS: LASIX PO SCH (08:56)
[2019-06-18] MEDS: NORVASC PO SCH ×2 (08:56→20:20)
--- NOTE | 2019-06-18 13:26 | GASTROENTEROLOGY PROGRESS NOTE ---
DATE: 06/18/2019 SUBJECTIVE: The patient denies complaints today. He has had no further rectal bleeding. He did report having a bowel movement without any noted blood. His hemoglobin and hematocrit have increased today. He has not received blood transfusions since admission. He received dialysis yesterday. OBJECTIVE: Vital Signs: Temperature 98.8 degrees, pulse 63, respirations 15, blood pressure 144/71. General: Patient is awake and alert, no acute distress. LABORATORY: Hematology: WBC 7.58, hemoglobin 13.7, hematocrit 42.5, MCV 92.2, platelet 188. Coagulation pro time 13.4, INR 1.01, PTT 29.4. Chemistry: Sodium 144, potassium 3.8, chloride 101, CO2 28. BUN 31, creatinine 4.2, glucose 172, calcium 9.2, phosphorus 4.5. ASSESSMENT AND PLAN: 1. Rectal bleeding seems to have resolved. He has a stable hemoglobin and hematocrit. 2. End-stage renal disease. Patient received dialysis yesterday. 3. A CT scan showed no evidence of urolithiasis. Constipation was noted along with diverticulosis. Possible solid renal neoplasm on the right. Dr. Espinoza is following the patient. 4. History of diverticulosis by colonoscopy in 2017. PLAN: Patient has had no further rectal bleeding since admission. Hemoglobin and hematocrit is stable and has actually increased over the last 2 days since his admission. CT scan showed constipation. We will start patient on Dara-Colace 2 tablets every night, and he can adjust the dosage according to his response once he is discharged. We will continue to follow. Once he is discharged, recommend he follow up with us an outpatient. I have discussed this case with Dr. Cui. Dictated by QUIRINO Ramsey for Keith Cui MD cc: QUIRINO Verde MD
--- NOTE | 2019-06-18 17:09 | PROGRESS NOTE ---
DATE: 06/18/2019 SUBJECTIVE: Mr. Singh has not had any further bleeding. No nausea or vomiting. No comfort. His hematocrit is stable at 42, hemoglobin 13. Electrolytes look good. Volume status looks good. OBJECTIVE: Vital Signs: Temperature 98.8 degrees, pulse 63, respirations 15, blood pressure 144/71. HEENT: Pupils are equal and round. Lungs: Clear in all lung bunch. Cardiovascular: Regular rhythm and rate without murmur or S3. DIAGNOSTIC STUDIES: Blood sugars 229, 128, and 323. ASSESSMENT AND PLAN: 1. Rectal bleeding seems to have resolved. Stable hemoglobin and hematocrit. Plan to let him go home tomorrow. History of diverticulosis per colonoscopy in 2017. CT showed constipation so the patient put on Dara-Colace 2 tablets every night and then can adjust this with discharge. So, plan to let him go after dialysis tomorrow. 2. End-stage renal disease. Volume status and electrolytes look good. 3. CT scan showed no evidence of urolithiasis. Constipation was noted so her was put on Dara- Colace. He feels good, so hopefully he can go home tomorrow. cc: Bj Vázquez MD
[2019-06-18] MEDS: SODIUM CHLORIDE 0.9% INJ SCH (17:21)
[2019-06-18] MEDS: XALATAN 0.005% OPH SOLN BOTH EYES SCH (20:20)
[2019-06-18] MEDS ORDERED: PERICOLACE PO SCH (21:00)
[2019-06-19] MEDS: SODIUM CHLORIDE 0.9% INJ SCH (04:47)
[2019-06-19] MEDS: PROTONIX IV SCH (04:47)
[2019-06-19] MEDS: HUMALOG SUBQ SCH ×2 (06:09→14:16)
[2019-06-19] MEDS ORDERED: NS 2,000 ML MISC PRN (06:14)
[2019-06-19] MEDS ORDERED: TIGHT: 0.2 ML/HR FOR DIALYSIS MISC PRN (06:14)
[2019-06-19] MEDS ORDERED: HEPARIN IV PRN (06:14)
[2019-06-19 07:06] LABS: BASO# 0.02 X1000 (0.0-0.2); BASO% 0.3 % (0.0-0.8); EOS# 0.35 X1000 (0.0-0.7); EOS% 4.4 % (0.0-10.0); HEMATOCRIT 37.7 % (42.0-52.0); HEMOGLOBIN 11.8 g/dL (14.0-18.0); IMM GRAN# 0.02 X1000 (0.0-0.04); IMM GRAN% 0.3 % (0.0-0.5); LYMPH# 1.94 X1000 (1.2-3.4); LYMPH% 24.6 % (20.5-51.1); MCH 28.9 PG (27-31); MCHC 31.3 g/dL (33-37); MCV 92.4 FL (81-99); MONO# 0.73 X1000 (0.11-0.59); MONO% 9.2 % (1.7-9.3); MPV 9.4 FL (7.4-10.4); NEUT# 4.84 X1000 (1.4-6.5); NEUT% 61.2 % (42.2-75.2); PLT 179 X1000 (130-400); RBC 4.08 XMIL (4.7-6.1); RDW 15.2 % (11.5-14.5)
[2019-06-19 07:21] VITALS: BP 146/63
[2019-06-19 07:32] LABS: ALBUMIN 3.4 g/dL (3.5-5.0); CALCIUM 8.9 mg/dL (8.8-10.2); CREATININE 5.2 mg/dL (0.7-1.2); PHOSPHORUS 5.6 mg/dL (2.7-4.5); POTASSIUM 4.5 mmol/L (3.5-5.1)
[2019-06-19] MEDS: COMBIGAN OPHTH SOLN BOTH EYES SCH (08:23)
[2019-06-19] MEDS: NORVASC PO SCH (08:24)
[2019-06-19] MEDS: LASIX PO SCH (08:24)
[2019-06-19] MEDS: COZAAR PO SCH (08:24)
[2019-06-19] MEDS: COREG PO SCH (08:25)
--- NOTE | 2019-06-19 13:33 | NEPHROLOGY PROGRESS NOTE ---
DATE: 06/19/2019 SUBJECTIVE: The patient is resting in bed. He states he has gotten to the chair but he has not walked up and down the howe yet. OBJECTIVE: Vital Signs: Temperature 98.1, pulse 72, respiratory rate 19, blood pressure 143/68. Intake 1.2 L. Output 700 mL. Physical Examination: General: Elderly gentleman, resting in bed. No acute distress. HEENT: Normocephalic, atraumatic. Conjunctivae are pale. Oral mucosa moist. Neck: Supple. No JVD. Cardiovascular: Regular rate and rhythm. Pulmonary: Clear bilaterally. Abdomen: Soft. Positive bowel sounds. : Minimal void, hemodialysis assist. Extremities: No clubbing, cyanosis, edema. Integumentary: Skin is warm and dry. Lab Data: Sodium 143, potassium 4.5, CO2 of 25, creatinine 5.2, phosphorus 5.6, albumin 3.4. ASSESSMENT AND PLAN: 1. Chronic kidney disease 5D. Today is his routine dialysis day. We will put him a 2 K bath, ultrafiltration to his dry weight, 4 hour treatment. 2. Gastrointestinal bleed. He has had no further episodes. 3. Disposition. Likely will go home in the next day or so. We will continue his dialysis as long as he is in the hospital and then he can transition back over to his routine outpatient. Dictated by QUIRINO Hernandez for Juan Daniel Frank MD Face to face encounter, data reviewed, discussed with Bipin Rodney on 06/19/19. I agree with the above assessment and plan of care. cc: Juan Daniel Frank MD [facility]
--- NOTE | 2019-06-19 13:36 | DISCHARGE SUMMARY ---
ADMISSION DATE: 06/16/2019 DISCHARGE DATE: 06/19/2019 HOSPITAL COURSE: He is followed by Dr. Frank. He presented complaining of blood in the stool. This is an 83-year-old gentleman, prior history of prostate cancer, end-stage renal disease, and gets dialysis Mondays, Wednesdays, and Fridays. Recent melanoma, receiving chemotherapy per Dr. Espinoza. Presented to the emergency room after 2 large bowel movements with bright red blood in the commode and clots to bowel movements which were more maroon in color. Developed some bilateral lower quadrant pain. Stated that the pain was relieved after his bowel movement. Since being in the emergency room, he has had no prior bleeding. Since being in the hospital, he has had no further bleeding. No abdominal pain. Hematocrit has remained stable. Hemoglobin remained stable. Dr. Cui has evaluated. PAST MEDICAL HISTORY: 1. Prostate cancer. 2. Skin cancer. 3. Diabetes mellitus type 2. 4. End-stage renal disease gets dialysis Mondays, Wednesdays, Fridays. 5. Hyperlipidemia. 6. Hypertension. 7. Sleep apnea. 8. Prior TIA's. 9. Glaucoma PAST SURGICAL HISTORY: Cataract removal, hernia repair, transurethral resection of prostate. ADMISSION DIAGNOSES: 1. Questionable gastrointestinal bleed, lower gastrointestinal bleed was evaluated per Dr. Cui. Hematocrit, hemoglobin remained stable. He had no further sign of bleeding, and so put him on high-dose Protonix. 2. Chronic kidney disease. Continues dialysis Mondays, Wednesdays, and Fridays. His volume status, electrolytes look good. Hematocrit stable. 3. 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 This is possibly new and this was discussed with Dr. Espinoza. He is aware. 4. Diabetes mellitus type 2. Blood sugars controlled. 5. Hypertension. Blood pressure well controlled. So, felt he could go home on 06/19/2019, and we will discharge him on home medications; Norvasc 2.5 mg a day, Combigan ophthalmic solution 1 drop each eye b.i.d. vitamin D 50,000 units q. week, Lasix 20 mg a day, insulin glargine 15 units b.i.d., Latanoprost eyedrops 0.005% both eyes at bedtime, Cozaar 50 mg at bedtime and 200 mg q.a.m., melatonin 10 mg at bedtime, multivitamin daily, simvastatin 20 mg q.p.m. cc: Bj Vázquez MD
--- NOTE | 2019-06-19 13:47 | GASTROENTEROLOGY PROGRESS NOTE ---
DATE: 06/19/2019 SUBJECTIVE: Patient is currently seen in the dialysis unit. He denies any further signs of rectal bleeding. He has had a bowel movement today. CT scan has shown constipation. He was started on Dara-Colace every night. OBJECTIVE: Vital Signs: Temperature 98.2 degrees, pulse 67, respirations 18, blood pressure 146/63. General: Patient is awake and alert, in no acute distress. DIAGNOSTIC STUDIES: Hematology: WBC 7.90, hemoglobin 11.8, hematocrit 37.7. Chemistry: Sodium 143, potassium 4.5, chloride 105, CO2 of 25, BUN 54, creatinine 5.2, glucose 162. CT scan on 06/16/2019 showed constipation, diverticulosis, possible solid renal neoplasm on the right, and cholelithiasis. ASSESSMENT AND PLAN: 1. Recent rectal bleeding has resolved. Hemoglobin and hematocrit have been stable. 2. End-stage renal disease. Patient receiving his scheduled dialysis today. 3. CT scan showing constipation. Dara-Colace 2 tablets every night was added. 4. History of diverticulosis by colonoscopy in 2017. PLAN: Patient has had no further rectal bleeding since admission. Hemoglobin and hematocrit have remained stable. CT scan has shown constipation, and he was started on Dara-Colace 2 tablets every night. Patient is hoping to be discharged after his dialysis today. Recommend he follow up with us as an outpatient. Further plans to be made according to his progress. I have discussed this case with Dr. Cui. Dictated by QUIRINO Ramsey for Keith Cui MD cc: QUIRINO Verde MD
[2019-06-19] MEDS ORDERED: PROTONIX PO SCH (14:30)
== END 2019-06-19 15:46 | disposition home or self-care (01) | DRG 377 ==
LOC: ED 11:37 → 1N 15:12 → SUATTDRO 15:12
PROVIDERS: ATTEND Emergency Medicine

== ENCOUNTER 2019-08-25 22:10 | Inpatient (IN) ==
[2019-08-25] MEDS ORDERED: ASPIRIN ONE (22:35)
[2019-08-25 22:59] LABS: BASO# 0.01 X1000 (0.0-0.2); BASO% 0.2 % (0.0-0.8); HEMOGLOBIN 11.9 g/dL (14.0-18.0); IMM GRAN# 0.04 X1000 (0.0-0.04); IMM GRAN% 0.6 % (0.0-0.5); LYMPH# 0.43 X1000 (1.2-3.4); LYMPH% 6.9 % (20.5-51.1); MCH 29.2 PG (27-31); MCHC 31.3 g/dL (33-37); MCV 93.4 FL (81-99); MONO# 0.05 X1000 (0.11-0.59); MONO% 0.8 % (1.7-9.3); MPV 9.4 FL (7.4-10.4); NEUT# 5.74 X1000 (1.4-6.5); NEUT% 91.5 % (42.2-75.2); PLT 196 X1000 (130-400); RBC 4.07 XMIL (4.7-6.1); RDW 14.4 % (11.5-14.5); WBC 6.27 X1000 (4.8-10.8)
[2019-08-25 23:15] LABS: INR 0.97
[2019-08-25 23:16] LABS: PTT 27.8 Seconds (22.3-41.8)
[2019-08-25 23:34] LABS: ALB/GLOB RATIO 1.2; ALBUMIN 3.8 g/dL (3.5-5.0); CALCIUM 9.5 mg/dL (8.8-10.2); POTASSIUM 5.3 mmol/L (3.5-5.1); TOTAL BILIRUBIN 0.31 mg/dL (0.20-1.00); TOTAL PROTEIN 7.1 g/dL (6.3-8.3)
[2019-08-26] MEDS ORDERED: HUMULIN R IV ONE (00:04)
[2019-08-26] MEDS ORDERED: LASIX IV ONE (00:04)
[2019-08-26] MEDS ORDERED: LABETALOL IV ONE (00:23)
[2019-08-26] MEDS ORDERED: NITROGLYCERIN SL PRN (01:55)
[2019-08-26] MEDS ORDERED: NITROGLYCERIN SL ONE (01:55)
[2019-08-26] MEDS ORDERED: APRESOLINE IV ONE (01:56)
[2019-08-26] MEDS ORDERED: MORPHINE IV PRN (03:38)
[2019-08-26] MEDS ORDERED: ZOFRAN IV PRN (03:38)
[2019-08-26] MEDS ORDERED: TYLENOL PO PRN (03:38)
[2019-08-26 04:04] LABS: BE -3.1 mmoll (-2.0-2.0); BLOOD TYPE VENOUS; HCO3-(ACT) 22.4 mmoll (22-27); PCO2(98.6) 33 mmHg (40-60); PO2(98.6) 74 mmHg (30-55); SAMPLE BLOOD; SAO2 96.9 % (40.0-85.0); pH(98.6) 7.41 (7.32-7.43)
[2019-08-26] MEDS: HEPARIN SUBQ SCH ×2 (04:21→16:38)
[2019-08-26] MEDS ORDERED: MELATONIN PO PRN (06:10)
[2019-08-26] MEDS: PRILOSEC PO SCH (06:13)
[2019-08-26] MEDS ORDERED: VITAMIN D PO SCH (06:15)
[2019-08-26] MEDS: NITROGLYCERIN TOP SCH ×4 (06:17→21:48)
[2019-08-26] MEDS ORDERED: HUMALOG SUBQ SCH (07:00)
[2019-08-26] MEDS: CENTRUM SILVER PO SCH ×2 (07:54→09:20)
[2019-08-26] MEDS: LANTUS INSULIN SUBQ SCH ×3 (07:54→20:20)
[2019-08-26] MEDS: HUMALOG SUBQ SCH ×5 (07:54→20:20)
[2019-08-26] MEDS: NORVASC PO SCH ×3 (07:55→20:19)
[2019-08-26] MEDS: LASIX PO SCH ×2 (07:55→09:21)
[2019-08-26] MEDS: APRESOLINE PO SCH ×2 (07:55→09:20)
[2019-08-26] MEDS: ASPIRIN PO SCH ×2 (07:55→09:20)
[2019-08-26] MEDS: COMBIGAN OPHTH SOLN BOTH EYES SCH ×2 (08:00→20:22)
[2019-08-26] MEDS ORDERED: HEPARIN IV PRN (09:03)
[2019-08-26] MEDS ORDERED: NS 2,000 ML MISC PRN (09:03)
[2019-08-26 16:04] LABS: CALCIUM 9.1 mg/dL (8.8-10.2); POTASSIUM 3.4 mmol/L (3.5-5.1)
[2019-08-26] MEDS ORDERED: COZAAR PO SCH (21:00)
[2019-08-26] MEDS ORDERED: PERICOLACE PO SCH (21:00)
[2019-08-26] MEDS ORDERED: XALATAN 0.005% OPH SOLN BOTH EYES SCH (21:00)
[2019-08-26] MEDS ORDERED: ZOCOR PO SCH (21:00)
[2019-08-27] MEDS: NITROGLYCERIN TOP SCH ×3 (04:33→18:50)
[2019-08-27] MEDS: HEPARIN SUBQ SCH ×2 (04:33→18:49)
[2019-08-27 05:42] LABS: BASO# 0.02 X1000 (0.0-0.2); BASO% 0.2 % (0.0-0.8); EOS# 0.24 X1000 (0.0-0.7); EOS% 2.4 % (0.0-10.0); HEMATOCRIT 36.3 % (42.0-52.0); HEMOGLOBIN 11.5 g/dL (14.0-18.0); IMM GRAN# 0.05 X1000 (0.0-0.04); IMM GRAN% 0.5 % (0.0-0.5); LYMPH# 1.83 X1000 (1.2-3.4); LYMPH% 18.3 % (20.5-51.1); MCH 29.3 PG (27-31); MCHC 31.7 g/dL (33-37); MCV 92.4 FL (81-99); MONO# 0.83 X1000 (0.11-0.59); MONO% 8.3 % (1.7-9.3); MPV 9.4 FL (7.4-10.4); NEUT# 7.01 X1000 (1.4-6.5); NEUT% 70.3 % (42.2-75.2); PLT 223 X1000 (130-400); RBC 3.93 XMIL (4.7-6.1); RDW 14.5 % (11.5-14.5); WBC 9.98 X1000 (4.8-10.8)
[2019-08-27 06:24] LABS: AGAP 16; BUN 36 mg/dL (8-22); CHLORIDE 96 mmol/L (98-107); CHOLESTEROL 199 mg/dL (0-200); COSMO 285; CREATININE 4.2 mg/dL (0.7-1.2); ESTIMATED GFR 14; GLUCOSE 120 mg/dL (70-104); HDL 58 mg/dL (35-55); LDL 111 mg/dL; MAGNESIUM 2.1 mg/dL (1.5-2.7); POTASSIUM 3.9 mmol/L (3.5-5.1); SODIUM 138 mmol/L (136-145); TCO2 26 mmol/L (25-35); TRIGLYCERIDES 152 mg/dL (39-160); VLDL 30 mg/dL
[2019-08-27] MEDS: PRILOSEC PO SCH (06:27)
[2019-08-27] MEDS: HUMALOG SUBQ SCH ×3 (06:27→18:49)
[2019-08-27] MEDS ORDERED: LEXISCAN ONE (08:54)
[2019-08-27] MEDS: APRESOLINE PO SCH (11:38)
[2019-08-27] MEDS: LANTUS INSULIN SUBQ SCH (11:39)
[2019-08-27] MEDS: CENTRUM SILVER PO SCH (11:39)
[2019-08-27] MEDS: ASPIRIN PO SCH (11:39)
[2019-08-27] MEDS: COMBIGAN OPHTH SOLN BOTH EYES SCH (11:41)
[2019-08-27] MEDS: LASIX PO SCH (11:44)
[2019-08-27] MEDS: NORVASC PO SCH (11:44)
[2019-08-27 16:43] VITALS: BP 115/66
== END 2019-08-27 19:00 | disposition home or self-care (01) ==
LOC: ED 22:10 → SUATTDRO 08-26 04:15 → 2N 08-26 04:15
PROVIDERS: ATTEND Internal Medicine

== ENCOUNTER 2019-11-05 04:05 | Inpatient (IN) ==
--- NOTE | 2019-11-05 04:39 | PROVIDER DOCUMENTATION ---
HPI-Respiratory General - General Chief Complaint: Chest Pain Stated Complaint: CHEST PAIN Time Seen by Provider: 11/05/19 04:29 Source: patient Allergies/Adverse Reactions: Patient Allergies Allergy/AdvReac Type Severity Reaction Status Date / Time levofloxacin [From Levaquin] Allergy Mild RASH Verified 11/05/19 10:44 rofecoxib [From Vioxx] Allergy Mild SWELLING Verified 11/05/19 10:44 Sulfa (Sulfonamide Allergy Mild RASH Verified 11/05/19 10:44 Antibiotics) [Sulfa(Sulfonamide Antibiotics)] Home Medications: Home Medication List Medication Instructions Recorded Confirmed Last Taken Type Furosemide [Lasix] 20 mg PO DAILY 07/05/15 11/05/19 11/04/19 History Insulin Lispro [Humalog] 1 unit SUBQ DIRECTED 07/05/15 11/05/19 11/04/19 History Losartan [Cozaar] 50 mg PO BID 07/05/15 11/05/19 11/04/19 History Multivit-Min/FA/Lycopen/Lutein 1 each PO DAILY 07/05/15 11/05/19 11/04/19 History [Centrum Silver Ultra Men's Tab] Simvastatin 20 mg PO QPM 07/05/15 11/05/19 11/04/19 History Insulin Glargine,Hum.rec.anlog 15 unit SQ BID 08/16/17 11/05/19 11/04/19 History [Abdiaziz Ogden U-100] Melatonin 10 mg PO QHS PRN 08/27/18 11/05/19 11/04/19 History Brimonidine/Timolol Ophth Soln 1 drp BOTH EYES BID 01/24/19 11/05/19 11/04/19 History [Combigan Ophth Soln] Latanoprost/Pf [Latanoprost 0.005% 1 drp BOTH EYES QHS 01/24/19 11/05/19 11/04/19 History Eye Drop] Amlodipine [Norvasc] 2.5 mg PO BID 06/16/19 11/05/19 11/04/19 History Ergocalciferol (Vitamin D2) 50,000 unit PO Q7D 06/16/19 11/05/19 11/01/19 History [Vitamin D] Aspirin [Felipe Chewable Aspirin] 81 mg PO DAILY 08/26/19 11/05/19 11/04/19 History Omeprazole [Prilosec] 20 mg PO DAILY@0700 #30 cap 08/27/19 11/05/19 11/04/19 Rx Bimatoprost [Lumigan] 1 drp OPHTHALMIC (EYE) BID 11/05/19 11/05/19 11/04/19 History Apixaban [Eliquis] 2.5 mg PO BID #90 tab 11/07/19 Unknown Rx CefUROXIME [Ceftin] 500 mg PO Q12HR #7 tab 11/07/19 Unknown Rx Metoprolol Succinate E.r. [Toprol 25 mg PO DAILY #30 tab 11/07/19 Unknown Rx Xl] - History of Present Illness-Resp Nature of Presenting Problem: Patient is a 83 year old white male with ESRD (receives hemodialysis MWF,follo wed by Dr. Magaña), squamous cell carcinoma (receives chemo, last chemo last Monday), and diabetes who presents by private car complaining of fever, dry cough with substernal pleuritic /10 substernal chest discomfort and fever since 9pm tonight. Chest pain is worse with inspiration. Denies history of CAD. Quality of Pain: reports: other (discomfort) Review of Systems - Adult - REVIEW OF SYSTEMS - ADULT Constitutional: reports: chills, fever Eyes: reports: no symptoms reported Ears, Nose, Mouth & Throat: reports: see HPI (throat cancer- currently receiving chemo by Dr. Espinoza) Cardiovascular: reports: see HPI, chest pain (pleuritic, worse with inspiration) Respiratory: reports: cough, shortness of breath Gastrointestinal: reports: no symptoms reported Genitourinary: reports: no symptoms reported Musculoskeletal: reports: see HPI Integumentary: reports: no symptoms reported Neurological: reports: no symptoms reported Psychiatric: reports: anxiety Endocrine: reports: no symptoms reported Hematologic/Lymphatic: reports: no symptoms reported Allergic/Immunologic: reports: no symptoms reported All Other Systems: Reviewed and Negative Past History - Adult - PAST MEDICAL HISTORY-ADULT Review of Records: reports: Old Records Reviewed, Nursing Assessment Review, Medications Reviewed, Social history reviewed & non-contributory. Major Childhood Illnesses: reports: denies history Cardiovascular: reports: HTN Respiratory: reports: sleep apnea Gastrointestinal: reports: denies history Obstetrical/Gynecological: reports: denies history Genitourinary: reports: dialysis, kidney disease (decreased renal function), prostate cancer Musculoskeletal: reports: denies history Neurological: reports: denies history Endocrine/Immune: reports: Diabetes Other Conditions: reports: skin disorder - PRIOR SURGERIES/PROCEDURES Surgical/Procedure History: reports: tonsillectomy, hernia repair, other (prostectomy, urinary sphintcer) - IMMUNIZATION STATUS Childhood Immunizations: See Nurse Assessment Flu Vaccine: See Nurse Assessment - FAMILY HISTORY Family History: reviewed, not pertinent Physical Exam-General - CONSTITUTIONAL General Appearance: alert, no apparent distress, other (nondiaphoretic) - EYES Eyes: other (clear) - HEAD, EARS, NOSE, MOUTH & THROAT HENMT: moist mucous membranes - NECK Neck: supple - RESPIRATORY Respiratory: no accessory muscle use, decreased breath sounds - CARDIOVASCULAR Cardiovascular: regular rate, rhythm - GASTROINTESTINAL (ABDOMEN) Abdominal Exam: non tender, soft - LYMPHATIC Lymphatic: no adenopathy - MUSCULOSKELETAL Back Exam: no CVA tenderness Extremity: non-tender - SKIN Integumentary: rash (erythematous rash over upper chest and neck (chonic)) - NEUROLOGIC Neurologic: grossly normal - PSYCHIATRIC Psych/Mental Status: oriented x 3, anxious Progress - PLAN OF CARE/RESULTS Progress/Plan/Lab Results: Orders Category Date Time Status Admit - [facility] Routine AdmDCTranf 11/05/19 09:32 Active Activity - Up with Assistance ORDERED Care 11/05/19 09:32 Active Cardiac Monitoring DIRECTED Care 11/05/19 04:30 Completed Cardiac Monitoring DIRECTED Care 11/05/19 08:37 Completed Elevate Head of Bed DIRECTED Care 11/05/19 12:15 Active Encourage Fluids DIRECTED Care 11/05/19 12:15 Active FSBS/Accucheck Result AC + HS Care 11/05/19 09:32 Active Intake and Output-Strict Q 8-HR ASSESS Care 11/05/19 12:15 Active Notify MD of + Sepsis Screen NOW Care 11/05/19 08:37 Active Notify Physician As Ordered Care 11/05/19 08:37 Active Nursing- Assist w/ IS as order ORDERED Care 11/05/19 12:15 Active Nursing- MD Consult Request ROUTINE Care 11/05/19 09:32 Completed Saline Loc NOW Care 11/05/19 04:32 Active Turn, Cough and Deep Breathe Q2HR Care 11/05/19 12:15 Active Update & Confirm Home Medicati ROUTINE Care 11/05/19 09:33 Completed Vital Signs Order Q 4-HR ASSESS Care 11/05/19 12:15 Active Z-Document. for Tele Applied ORDERED Care 11/05/19 12:15 Completed Physician/Provider Consults Routine Cons 11/05/19 09:32 Ordered Social Service Consult Routine Cons 11/05/19 12:15 Active Renal Diet Diet 11/05/19 09:33 Completed CHEST-2 VIEWS [RAD] Routine Exams 11/06/19 06:00 Completed CHEST-PORTABLE [RAD] Stat Exams 11/05/19 04:31 Completed CTA [CT ANGIOGRM PULMONARY ARTERIES] [CT] Stat Exams 11/05/19 06:53 Completed BLOOD CULTURE [BLDCUL] Stat Lab 11/05/19 05:18 Results CBC WITH DIFF [HEME] Q24H Lab 11/06/19 04:53 Completed CBC WITH DIFF [HEME] Q24H Lab 11/07/19 04:50 Completed CBC WITH ELECTRONIC DIFF [HEME] Stat Lab 11/05/19 05:12 Completed CK PROFILE [SP CHEM] Stat Lab 11/05/19 05:12 Completed CK TOTAL [CHEM] Stat Lab 11/05/19 09:28 Completed CMP [COMPREHENSIVE METABOLIC PANEL] [CHEM] Stat Lab 11/05/19 05:12 Completed COMPREHENSIVE METABOLIC PANEL [CHEM] Q24H Lab 11/06/19 04:53 Completed COMPREHENSIVE METABOLIC PANEL [CHEM] Q24H Lab 11/07/19 04:50 Completed D-DIMER [COAG] Stat Lab 11/05/19 05:12 Completed LACTATE, PLASMA [CHEM] Lab 11/05/19 08:52 Completed LACTATE, PLASMA [CHEM] Lab 11/05/19 11:30 Completed LACTATE, PLASMA [CHEM] Stat Lab 11/05/19 05:12 Completed PROTIME WITH INR [COAG] Stat Lab 11/05/19 05:12 Completed PTT [COAG] Stat Lab 11/05/19 05:12 Completed TROPONIN T Stat Lab 11/05/19 05:12 Completed TROPONIN T Stat Lab 11/05/19 09:28 Completed URINALYSIS W/POSS RFLX CULT [URINALYSIS] Stat Lab 11/05/19 09:41 Completed Acetaminophen [Tylenol] Med 11/05/19 09:32 Discontinued 650 mg PO Q4H PRN PRN Albuterol 2.5MG/Ipratrop 0.5MG [Duoneb (A & A)] Med 11/05/19 09:32 Discontinued 3 ml INH Q2H PRN PRN Heparin Med 11/05/19 09:32 Discontinued 5,000 unit SUBQ Q12H Insulin Human Regular [Humulin R] Med 11/05/19 11:00 Discontinued See Protocol SUBQ 0700,1100,1600,2100 Piperacillin/Tazobactam [Zosyn] 3.375 gm Med 11/05/19 06:27 Discontinued 0.9% Sodium Chloride Inj [Ns] 50 ml IV NOW Vancomycin 1 gm/Ns Med 11/05/19 09:01 Discontinued 1 gm in 250 ml IV NOW Aerosol Treatments Routine Oth 11/05/19 09:32 Completed Incentive Spirometer Routine Oth 11/05/19 12:15 Completed Oxygen Device Stat Oth 11/05/19 04:30 Completed Pulse Oximetry Routine Oth 11/05/19 09:32 Completed Telemetry [OM.EQ] Routine Oth 11/05/19 12:15 Active EKG [EKG] Stat Ther 11/05/19 04:30 Draft Transfer/Admit Order [TRANSFER] Routine Transfer 11/05/19 09:27 Completed Result Diagrams: 11/07/19 04:50 11/07/19 04:50 - EKG 1 Time of EKG reading by physician:: 04:18 EKG Read and Signed by:: Ivan Edgar Rate: 101 [place]: left QRS: LVH Comments: no STEMI - CT/MRI 1 CT Study: Thorax Impression: Abnormal (EXAM: CT ANGIOGRAM PULMONARY ARTERIES 11/05/2019 HISTORY: sob, chest pain, elevated d-dimer TECHNIQUE: This exam was performed using automated exposure control, adjustment of mA or kV according to patient size, and/or use of iterative reconstruction technique. COMMENT: The current study is compared with the previous examination of 10/17/2019. 3-D MIPS were performed. There is a hiatal hernia. There are no abnormal fluid collections. There is no evidence of filling defects in the pulmonary arteries. The aorta is partially calcified but not distended and there is no evidence of dissection. There is extensive coronary calcification. There are calcifications in the mitral valve. There is no evidence of significant adenopathy. There is some collateral flow of contrast in the azygos system and intercostal veins. There does not appear to be obstruction of the subclavian vein or superior vena cava. There are gallstones in the gallbladder neck without evidence of cholecystitis. There is diverticulosis in the visualized portion of the colon. There are some ill-defined opacities present in the lingula and left lower lobe and there is mild bronchiectasis in the posterior lower lobes particularly the left lower lobe. Compared to the previous examination these findings were largely present previously although the degree of opacification of the left lower lobe and lingula is slightly worse. IMPRESSION: No evidence of pulmonary emboli. Minimal pneumonia in the lingula and left lower lobe superimposed on fibrosis and bronchiectasis. Electronically signed by Mitchell Us 11/05/2019 7:53 AM 11/05/19 0753 Interpreting Physician: Mitchell Us MD Dictated Date/Time: 11/05/19 0746) - CONSULTS/PCP/HOSPITALIST Notification #1 *Consult/PCP/Hospitalist*: Hospitalist Time Discussed: 09:02 Consult Disposition: Will see in ED, Admit - CHANGE OF SHIFT REPORT (ED Provider) 1 Report Given and Care Transferred to:: Dr. Ang Items Pending: CT/MRI Results, Other (VQ scan) Departure - Departure Date of Disposition Decision: 11/05/19 Time of Disposition Decision: 09:04 DIAGNOSIS: Lingular pneumonia, End stage renal disease Sepsis Qualifiers: Sepsis type: sepsis due to unspecified organism Sepsis acute organ dysfunction status: unspecified Qualified Code(s): A41.9 - Sepsis, unspecified organism Disposition: ADMITTED INPATIENT 09 Certified Medical Emergency: Emergent Condition: Stable - Critical Care Note This patient required my direct & personal management of CC.: No Attestation - Physician/ LILIAM Attestation Patient care was provided by Advanced Practice Provider:: No The physician spent face to face time with patient:: Yes Advanced Practice Provider documentation review:: Supervising physician onsite and consulted in the evaluation and care of this patient. The physician did have a face to face encounter with the patient.
--- NOTE | 2019-11-05 04:49 | EKG Report ---
Test Performed on : 11/05/2019 04:17:58 AM Test Reason : pain Blood Pressure : / mmHG Vent. Rate : 101 BPM Atrial Rate : 101 BPM P-R Int : 138 ms QRS Dur : 094 ms QT Int : 336 ms P-R-T Axes : 039 -41 055 degrees QTc Int : 435 ms Sinus tachycardia. Possible Left atrial enlargement Left axis deviation Left ventricular hypertrophy Cannot rule out Septal infarct , age undetermined Abnormal ECG When compared with ECG of 26-AUG-2019 06:54, Minimal criteria for Septal infarct are now present T wave inversion no longer evident in Inferior leads Unconfirmed Result
[2019-11-05 05:50] LABS: BASO# 0.02 X1000 (0.0-0.2); BASO% 0.1 % (0.0-0.8); EOS# 0.23 X1000 (0.0-0.7); EOS% 1.6 % (0.0-10.0); HEMATOCRIT 40.2 % (42.0-52.0); HEMOGLOBIN 12.7 g/dL (14.0-18.0); IMM GRAN# 0.04 X1000 (0.0-0.04); IMM GRAN% 0.3 % (0.0-0.5); LYMPH# 1.31 X1000 (1.2-3.4); LYMPH% 8.9 % (20.5-51.1); MCH 29.2 PG (27-31); MCHC 31.6 g/dL (33-37); MCV 92.4 FL (81-99); MONO# 1.15 X1000 (0.11-0.59); MONO% 7.8 % (1.7-9.3); MPV 9.3 FL (7.4-10.4); NEUT# 11.93 X1000 (1.4-6.5); NEUT% 81.3 % (42.2-75.2); PLT 243 X1000 (130-400); RBC 4.35 XMIL (4.7-6.1); RDW 14.9 % (11.5-14.5); WBC 14.68 X1000 (4.8-10.8)
[2019-11-05 06:20] LABS: ALB/GLOB RATIO 1.7; ALBUMIN 4.2 g/dL (3.5-5.0); CALCIUM 9.8 mg/dL (8.8-10.2); CREATININE 3.6 mg/dL (0.7-1.2); TOTAL BILIRUBIN 0.3 mg/dL (0.20-1.00); TOTAL PROTEIN 6.7 g/dL (6.3-8.3)
[2019-11-05] MEDS ORDERED: ZOSYN 3.375 GM in NS 50 ML IV ONE (06:27)
--- NOTE | 2019-11-05 07:13 | Diag Imaging Result Doc PS360 ---
EXAM: CHEST-PORTABLE INDICATION: chest pain TECHNIQUE: One view COMPARISON: 08/27/2019 FINDINGS: The right chest port is in stable position. There is suggestion of minimal atelectasis at the left lung base. The lungs are grossly clear, otherwise. There is no discrete pleural fluid collection or pneumothorax. The cardiomediastinal silhouette and central vasculature are grossly unremarkable. IMPRESSION: Minimal left basilar atelectasis. No definite acute chest pathology, otherwise. Electronically signed by Gabo Stapleton 11/05/2019 7:11 AM
--- NOTE | 2019-11-05 07:56 | Diag Imaging Result Doc PS360 ---
EXAM: CT ANGIOGRAM PULMONARY ARTERIES 11/05/2019 HISTORY: sob, chest pain, elevated d-dimer TECHNIQUE: This exam was performed using automated exposure control, adjustment of mA or kV according to patient size, and/or use of iterative reconstruction technique. COMMENT: The current study is compared with the previous examination of 10/17/2019. 3-D MIPS were performed. There is a hiatal hernia. There are no abnormal fluid collections. There is no evidence of filling defects in the pulmonary arteries. The aorta is partially calcified but not distended and there is no evidence of dissection. There is extensive coronary calcification. There are calcifications in the mitral valve. There is no evidence of significant adenopathy. There is some collateral flow of contrast in the azygos system and intercostal veins. There does not appear to be obstruction of the subclavian vein or superior vena cava. There are gallstones in the gallbladder neck without evidence of cholecystitis. There is diverticulosis in the visualized portion of the colon. There are some ill-defined opacities present in the lingula and left lower lobe and there is mild bronchiectasis in the posterior lower lobes particularly the left lower lobe. Compared to the previous examination these findings were largely present previously although the degree of opacification of the left lower lobe and lingula is slightly worse. IMPRESSION: No evidence of pulmonary emboli. Minimal pneumonia in the lingula and left lower lobe superimposed on fibrosis and bronchiectasis. Electronically signed by Mitchell Us 11/05/2019 7:53 AM
[2019-11-05 08:55] LABS: INR 0.93; PROTIME 12.5 Seconds (11.0-16.0); PTT 29.6 Seconds (22.3-41.8)
[2019-11-05] MEDS ORDERED: VANCOMYCIN 1 GM/NS 1 GM/250 ML IVPB IV ONE (09:01)
[2019-11-05] MEDS ORDERED: TYLENOL PO PRN (09:32)
[2019-11-05 09:47] LABS: URINE SOURCE CLEAN CATCH
[2019-11-05 09:51] LABS: BILIRUBIN URINE NEGATIVE (NEGATIVE); BLOOD URINE TRACE (NEGATIVE); COLOR YELLOW; GLUCOSE URINE 1000 mg/dL (NEGATIVE); KETONE URINE TRACE mg/dL (NEGATIVE); LEUKOCYTES URINE NEGATIVE (NEGATIVE); NITRITE URINE NEGATIVE (NEGATIVE); PROTEIN URINE 600 mg/dL (NEGATIVE); SP GRAVITY URINE 1.015; TURBIDITY URINE CLEAR (CLEAR); UROBILINOGEN URINE NORMAL (NORMAL)
[2019-11-05 09:53] LABS: UR EPITHELIAL CELLS <10 /HPF (<10); URINE BACTERIA NEGATIVE /HPF; URINE RBC <10 /HPF (<10); URINE WBC <10 /HPF (<10)
[2019-11-05] MEDS: HEPARIN SUBQ SCH ×2 (10:20→22:27)
[2019-11-05] MEDS: HUMULIN R SUBQ SCH ×3 (11:41→22:00)
--- NOTE | 2019-11-05 12:53 | HISTORY AND PHYSICAL ---
PRIMARY CARE PROVIDER: Kenna Baig MD CHIEF COMPLAINT: Chest pain. HISTORY OF PRESENT ILLNESS: Mr. Elizabeth Singh is a 83-year-old male with a medical history of squamous cell skin cancer where he has been receiving chemo treatments and radiation to his face. States that around 9 p.m. last night he had just went to lie down and started having some midsternal chest pain that was about a 5/10. It was constant and continuous until today where it has now subsided to 0 pain. It is midsternal, lower midsternal. It did not radiate. There was no nausea or vomiting. He had a low-grade fever of 99. He has not been coughing up any colors. He does claim to be choking when he eats secondary to his salivary glands not being as productive since he has had radiation in his face. He comes here with complaints of chest pain. He had a CTA of the lungs which shows a left lower lobe pneumonia. Some of the symptoms that he is having also seems to be associated with GERD. He did eat around 6 p.m. heavy, fatty, fried foods, so will admit him for further treatment and evaluation. PAST MEDICAL HISTORY: 1. Prostate cancer. 2. Squamous cell skin cancer with radiation to the face, chemotherapy treatments, and his last chemotherapy treatment was last . 3. Diabetes mellitus type 2. 4. End-stage renal disease, Monday, Monday, Monday dialysis. 5. GERD. 6. Hyperlipidemia. 7. Hypertension. 8. Obstructive sleep apnea without CPAP. 9. History of TIA 25 years ago. 10. Glaucoma. SURGICAL HISTORY: 1. Cataract surgery bilaterally. 2. Umbilical hernia repair. 3. TURP. 4. A bronchoscopy with right sided food removal by Dr. Horowitz. That was this past summer. 5. Right chest port. SOCIAL HISTORY: . Walks with a cane. Denies alcohol, tobacco, or illicit drug use. FAMILY HISTORY: Mother had diabetes. Father had colon cancer and CKD. ALLERGIES: Sulfa, Levaquin and Vioxx. HOME MEDICATIONS: 1. Latanoprost eye drop to both eyes nightly. 2. Melatonin 10 mg p.o. nightly p.r.n. 3. Insulin glargine 15 units subcutaneous twice a day. 4. Aspirin 81 mg p.o. daily. 5. Centrum Silver 1 tablet p.o. daily. 6. Timolol 1 drop both eyes twice a day. 7. Cozaar 50 mg p.o. twice a day. 8. Insulin lispro 1 to 4 ratio based on carbohydrate intake with each meal. 9. Lasix 20 mg p.o. daily. 10. Lumigan 1 drop both eyes twice a day. 11. Norvasc 2.5 mg p.o. twice a day. 12. Simvastatin 20 mg p.o. nightly. 13. Vitamin D2 66156 units p.o. every 7 days on Fridays. 14. Prilosec 20 mg p.o. daily. REVIEW OF SYSTEMS: Fourteen point review of systems are complete. All were negative except for those mentioned above in the HPI. PHYSICAL EXAMINATION: VITAL SIGNS: Temperature 99.8 degrees, heart rate 98, respiratory rate 24, blood pressure 159/76, O2 saturation 97% on room air. GENERAL: Mr. Elizabeth Singh is an 83-year-old male. He is in no acute distress. He is able to answer questions appropriately. HEENT: Atraumatic, normocephalic. Pupils equal, round, reactive to light. Extraocular movements intact. Mucous membranes are dry. NECK: Trachea midline, but there is looks like a mass or feels like something to the left of his trachea, which he states has been evaluated by ENT and there are no plans to do any surgery on it. CARDIOVASCULAR: S1-S2 regular rate and rhythm. No rubs, gallops, murmurs. No lower extremity edema. +2 dorsalis and radial pulses. Negative JVD or carotid bruits. PULMONARY: Clear to auscultation bilateral breath sounds. No accessory muscle use or work of breathing noted. GASTROINTESTINAL: Abdomen is soft, nontender, nondistended. Positive bowel sounds x4. EXTREMITIES: Moves all extremities equally. Decreased range of motion. NEUROLOGIC: A and O x3. Follows commands. Sensory is intact. SKIN: Warm, dry, intact. LABORATORY DATA: White blood cells 14,000, hemoglobin 12, hematocrit 40, platelet count 243,000. INR 0.93, PTT is 29.6. D-dimer is 1.01. Sodium 138, potassium 4.0, BUN 29, creatinine 3.6, glucose 235, calcium 9.8. Bilirubin 0.30, AST 16, ALT 14. CK is negative x2. Troponin 0.04 and the 2nd one is 0.03. Albumin 4.2. Lactate 2.0, and then down to 1.5. Urinalysis: 600 protein, 1000 glucose, trace ketones, trace blood, otherwise negative. IMAGING: EKG sinus tachycardia rate 101, QTc was 435. Chest x-ray minimal left basilar atelectasis. No acute pathology. Pulmonary arteriogram no evidence of pulmonary emboli but there is pneumonia in the lingula and the left lower lobe superimposed on fibrosis and bronchiectasis. ASSESSMENT AND PLAN: 1. Left lower lobe pneumonia. We will do nebulizers antibiotic coverage. We will also check a swallow. We will get a sputum culture if possible. 2. Dysphagia complaints. He apparently has choking issues. We will check a swallow. 3. History of prostate cancer and squamous cell skin cancer, followed by Dr. Espinoza. We can consult him. 4. Hypertension. We will get the home medications resumed. 5. Diabetes mellitus type 2. We will do pattern blood glucoses and sliding scale insulin. 6. End-stage renal disease with dialysis Monday, Monday, Monday. Dr. Frank was notified by ER and we will consult him. 7. Gastroesophageal reflux disease. Continue with proton pump inhibitor. 8. Glaucoma. Continue all eyedrops. 9. Deep venous thrombosis prophylaxis. Heparin. 10. Hyperlipidemia. Will continue statin. 11. Hypertension. Continue home medications. 12. Glaucoma. Continue eye drops. 13. Deep venous thrombosis prophylaxis. Heparin. Dictated by QUIRINO Hallman for Dusty Leyva MD cc: MD Suma Hogue CRNP Siddharth Patel, MD I agree with most components of history, physical, assessment and plan. A separate addendum has been dictated. [facility]
[2019-11-05] MEDS ORDERED: MELATONIN PO PRN (13:06)
[2019-11-05] MEDS: ASPIRIN PO SCH (14:38)
[2019-11-05] MEDS: NORVASC PO SCH ×2 (14:38→22:27)
[2019-11-05] MEDS: LANTUS INSULIN SUBQ SCH ×2 (14:43→23:20)
[2019-11-05] MEDS ORDERED: NS 1,000 ML IV SCH (15:00)
--- NOTE | 2019-11-05 15:30 | HISTORY AND PHYSICAL ---
ADDENDUM: I agree with most components of history, physical, assessment and plan dictated by the EROSION CONTROL COORDINATOR. HISTORY: In brief, Mr. Singh is 83-year-old man with history of insulin-dependent diabetes mellitus, chronic kidney disease stage 5, on Monday, Monday, Monday hemodialysis, essential hypertension, squamous cell cancer affecting skin of the face on chemotherapy, hyperlipidemia who comes in with chief complaints of fever, dry cough, substernal chest discomfort of about 12 hours duration. He started noticing these symptoms about yesterday evening. However, he worked through these symptoms and went to bed. However, in the morning time he woke up at 4 a.m. and he was feeling really congested in the chest and was uncomfortable, so he talked with his and decided to come to the hospital. His young granddaughter was recently diagnosed with influenza. In the emergency room he was found to have temperature of 99.8 degrees, His pulse was 100. He was hypertensive with blood pressure of 190. He was saturating 90 to 95 percent on room air so the hospitalist team was consulted for further management. Currently at the time of my evaluation, he is feeling significantly better. VITAL SIGNS: Temperature was 99.8 degrees, pulse 93, respiratory rate 10, blood pressure 140/70. He was saturating 94% on room air. PHYSICAL EXAMINATION: He is not in acute distress. HEENT: Oral cavity is moist. LUNGS: Air entry bilaterally equal. No wheeze, rhonchi, crackles. CARDIOVASCULAR: S1, S2 normal. No murmur, rub, or gallop. ABDOMEN: Soft, nontender. No hepatojugular reflex. EXTREMITIES: Mild bilateral lower extremity edema. SKIN: He has diffuse solar keratosis affecting his facial skin. LABS: Suggestive of leukocytosis, normocytic anemia, normal platelet count. He did have elevated D-dimer. He has chronic kidney disease stage 5, hyperglycemia. His troponins have been rather unremarkable. He had mild lactic acidosis of 2.4. MICROBIOLOGY: Blood cultures were drawn. Influenza screen has not been performed. IMAGING: CT scan chest performed to rule out pulmonary embolism had pneumonia in the lingula and left lower lobe. ASSESSMENT AND PLAN: 1. Left lower lobe pneumonia leading to sepsis. He did not receive intravenous fluid resuscitation, though he was given intravenous antibiotics considering he had chronic kidney disease stage 5 and has been on hemodialysis. His lactate is also marginal, so I will watch him and give him only small dose of intravenous fluids. 2. Left lower lobe pneumonia leading to sepsis and mild lactic acidosis. 3. History of insulin-dependent diabetes mellitus with hyperglycemia. I will resume his home insulin regimen. 4. History of essential hypertension. I will resume his home amlodipine, losartan. 5. I will follow up with chest x-ray, urine Legionella antigen, as well as sputum culture. DISPOSITION: I will monitor patient on telemetry unit. Plan of care discussed with the patient and his family members. Their questions have been satisfactorily answered. cc: Dusty Leyva MD MTDD
[2019-11-05] MEDS: DUONEB (A & A) INH PRN ×2 (17:19→19:47)
[2019-11-05] MEDS: ZOSYN 2.25 GM in NS 50 ML IV SCH (17:43)
[2019-11-05] MEDS ORDERED: ZOCOR PO SCH (21:00)
[2019-11-05] MEDS: XALATAN 0.005% OPH SOLN BOTH EYES SCH (22:25)
[2019-11-05] MEDS: COMBIGAN OPHTH SOLN BOTH EYES SCH (22:26)
[2019-11-05] MEDS: ZOCOR PO SCH (22:26)
[2019-11-05] MEDS: COZAAR PO SCH (22:28)
[2019-11-06] LABS: CALCIUM 8.3 mg/dL (8.8-10.2); CREATININE 4.7 mg/dL (0.7-1.2); POTASSIUM 3.5 mmol/L (3.5-5.1)
[2019-11-06] MEDS ORDERED: LOPRESSOR PO ONE (01:08)
--- NOTE | 2019-11-06 02:50 | EKG Report ---
Test Performed on : 11/05/2019 11:31:54 PM Test Reason : A-Fib per telemetry Blood Pressure : / mmHG Vent. Rate : 119 BPM Atrial Rate : 174 BPM P-R Int : 000 ms QRS Dur : 094 ms QT Int : 328 ms P-R-T Axes : 000 -19 067 degrees QTc Int : 461 ms Atrial fibrillation. with rapid ventricular response. Abnormal ECG Confirmed by Bhargav KARIMI, Matti Johnson ([id number]) on 11/11/2019 9:24:19 AM
[2019-11-06 05:22] LABS: BASO# 0.02 X1000 (0.0-0.2); BASO% 0.3 % (0.0-0.8); EOS# 0.23 X1000 (0.0-0.7); EOS% 3.1 % (0.0-10.0); HEMATOCRIT 32.8 % (42.0-52.0); HEMOGLOBIN 10.3 g/dL (14.0-18.0); LYMPH# 1.45 X1000 (1.2-3.4); LYMPH% 19.5 % (20.5-51.1); MCH 29.2 PG (27-31); MCHC 31.4 g/dL (33-37); MCV 92.9 FL (81-99); MONO# 0.87 X1000 (0.11-0.59); MONO% 11.7 % (1.7-9.3); MPV 9.2 FL (7.4-10.4); NEUT# 4.85 X1000 (1.4-6.5); NEUT% 65.4 % (42.2-75.2); PLT 195 X1000 (130-400); RBC 3.53 XMIL (4.7-6.1); RDW 14.9 % (11.5-14.5); WBC 7.42 X1000 (4.8-10.8)
[2019-11-06 05:47] LABS: ALB/GLOB RATIO 1.8; CALCIUM 8.1 mg/dL (8.8-10.2); CREATININE 4.8 mg/dL (0.7-1.2); TOTAL BILIRUBIN 0.16 mg/dL (0.20-1.00); TOTAL PROTEIN 4.7 g/dL (6.3-8.3)
[2019-11-06] MEDS: HUMULIN R SUBQ SCH ×4 (06:18→21:57)
[2019-11-06] MEDS: ZOSYN 2.25 GM in NS 50 ML IV SCH ×2 (06:54→21:55)
[2019-11-06] MEDS: PRILOSEC PO SCH (06:54)
[2019-11-06] MEDS ORDERED: LASIX PO SCH (09:00)
--- NOTE | 2019-11-06 09:35 | Diag Imaging Result Doc PS360 ---
EXAM: CHEST-2 VIEWS HISTORY: Pneumonia TECHNIQUE: Two views COMPARISON: 11/05/2019 FINDINGS: Stable small infiltrate or atelectasis in the left lung base. The lungs are well expanded. The cardiac megaly. No pulmonary edema. No pleural effusions identified. No change in the right jugular portacatheter. IMPRESSION: Stable exam. Electronically signed by Hang Mesa 11/06/2019 9:33 AM
[2019-11-06] MEDS: COMBIGAN OPHTH SOLN BOTH EYES SCH ×2 (09:50→21:55)
[2019-11-06] MEDS: ASPIRIN PO SCH (09:51)
[2019-11-06] MEDS: HEPARIN SUBQ SCH (09:52)
[2019-11-06] MEDS: LANTUS INSULIN SUBQ SCH ×3 (09:52→21:58)
--- NOTE | 2019-11-06 12:35 | NEPHROLOGY CONSULTATION ---
DATE: 11/06/2019 CONSULTING PHYSICIAN: Dr. Edgar REASON FOR CONSULTATION: Evaluation and treatment of ESRD. HISTORY OF PRESENT ILLNESS: Mr. Singh is an 83-year-old white male who is known to us from the outpatient dialysis arena. 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 He also has hypertension and hyperlipidemia. 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 He has received multiple radiation treatments for management. These are skin cancers. At any rate, he came to the emergency room because he was having substernal chest pain for which he describes as 5/10. No radiation constant, and ultimately subsided in the emergency room. No shortness of breath. He did have a low-grade temperature. No sputum. His evaluation in the emergency room found initial blood pressure of 190/89 with temperature 99.8 degrees. His chest x-ray was unremarkable, but he underwent a CT angiography which disclosed no evidence of pulmonary emboli, but he did have minimal pneumonia in the lingula and left lower lobe overlying fibrosis and bronchiectasis. He was admitted to be treated with IV antibiotics. He did attend his routine dialysis treatment on Monday. PAST MEDICAL HISTORY: As above, COPD and GERD. HOME MEDICATIONS: 1. Simvastatin. 2. Multivitamin. 3. Furosemide. 4. Losartan. 5. Insulin. 6. Melatonin. 7. Combigan. 8. Latanoprost. 9. Amlodipine. 10. Ergocalciferol. 11. Aspirin. 12. Omeprazole. 13. Lumigan. ALLERGIES: Levofloxacin, nonsteroidal, and sulfa. SOCIAL HISTORY: He is . No alcohol or tobacco. FAMILY HISTORY: Noncontributory. REVIEW OF SYSTEMS: Noncontributory. PHYSICAL EXAMINATION: Vital Signs: Blood pressure 100/60, heart rate 90, respirations 15, and afebrile. General: No acute distress. Skin: Warm and dry. Skin lesions are healed. Conjunctivae are pink. Pupils are equal. Neck: Neck veins are not distended. Trachea is midline. Heart: Irregular, and rate is approximately 100. PMI nondisplaced. Lungs: Equal breath sounds. No crackles or wheezes. Abdomen: Soft, nontender. Bowel sounds present. No organomegaly. Extremities: No edema, clubbing or cyanosis. IMPRESSION: 1. Chronic kidney disease 5D. He will have his routine hemodialysis treatment today. He appears euvolemic on exam. Electrolytes/acid base/anemia all on target. 2. Medication review. His antibiotic dosing is appropriate. 3. Atrial fibrillation with rapid ventricular response. I appreciate the input of Cardiology. Rate controlled currently. cc: Juan Daniel Frank MD
--- NOTE | 2019-11-06 13:23 | HEMO/ONC CONSULTATION ---
DATE: 11/06/2019 REASON FOR CONSULTATION: Mr. Singh is a known patient of ours for the treatment of a new questionable squamous cell skin cancer. HISTORY OF PRESENT ILLNESS: The patient came in to the ER last night complaining of midsternal pain of about a 5/10. He said it was continuous and constant all day, and was starting to subside by the time he got to the hospital. It did not radiate. He had no nausea or vomiting. He had no shortness of breath. He says he does have an issue with choking when he eats secondary to salivary glands not being productive since he had radiation to his face. The CTA of his lungs showed left lower lobe pneumonia. He was admitted for further workup. PAST MEDICAL HISTORY: 1. Prostate cancer. 2. Squamous cell skin cancer to the head and face, status post radiation, currently receiving immunotherapy with Libtayo. 3. Diabetes mellitus type 2. 4. ESRD on hemodialysis Monday, Monday, Monday. 5. GERD. 6. Hyperlipidemia. 7. Hypertension. 8. Sleep apnea. 9. History of TIA 25 years ago. 10. Glaucoma. SURGICAL HISTORY: 1. Cataract surgery bilaterally. 2. Umbilical hernia repair. 3. TURP. 4. Right chest port. SOCIAL HISTORY: Denies alcohol, tobacco, or illicit drug use. ALLERGIES: Sulfa, Levaquin, and Vioxx. HOME MEDICATIONS: Latanoprost eyedrops, melatonin, insulin glargine, aspirin, Centrum Silver, Timolol, Cozaar, insulin, lispro, Lasix, Lumigan, Norvasc, simvastatin, vitamin D 2, Prilosec. REVIEW OF SYSTEMS: General: Pertinent positives were noted in the HPI. Vital Signs: Temperature 97.7 degrees, pulse rate 71, respiratory rate 15, blood pressure 89/59, O2 saturation 98% on room air. He is in 0/10 pain. PHYSICAL EXAM: General: The patient is in no acute distress. HEENT: Sclerae is anicteric. Oral mucosa is normal. PERRLA. Cardiovascular: Normal S1, S2. No murmurs noted. Regular rate and rhythm. Respiratory: Lungs are diminished at lower bases. Some rhonchi noted. Normal respiratory effort. Gastrointestinal: Abdomen is soft, nontender, nondistended. Positive bowel sounds. Extremities: No lower extremity edema noted. Neurological: Awake, alert and oriented x3. Follows commands. No focal motor deficits noted. Skin: Has skin cancer spots to head and face. Healing well as expected. Otherwise, skin intact without ecchymosis or petechia. LABORATORY: WBC 7.42, hemoglobin 10.3, hematocrit 32.8, platelet count 195, ANC 4.85. Creatinine 4.8, magnesium 2.0. RADIOLOGY: Chest exam: Stable small infiltrate to the left lung base. No pulmonary edema or effusions identified. CTA with no evidence of pulmonary emboli. Minimal pneumonia in the lingula and the left lower lobe superimposed on fibrosis and bronchiectasis. ASSESSMENT AND PLAN: 1. Left lower lobe pneumonia. On antibiotics. Continue management per the hospitalist. 2. Dysphagia. Agree with checking a swallow study. Consult Gastroenterology if needed. 3. Squamous cell skin cancer. The patient has completed radiation. He is currently getting Libtayo every 3 weeks. His last dose was on 10/31/19. Doind very well. The patient has been tolerating his immunotherapy with minimal side effects and no complications. 4. End-stage renal disease. Patient is on dialysis Monday, Monday, Monday. He is followed by Dr. Frank. 5. Deep vein thrombosis prophylaxis. The patient is on heparin. Continue to allow him to get out of bed as he wishes. 6. Nutrition. Supply him with protein shakes. 7. Vitamin D deficiency. Continue to get the patient his vitamin D. His last level was adequate. Dictated by QUIRINO Jaquez for Guanakito Espinoza MD cc: Guanakito Espinoza MD [facility]
--- NOTE | 2019-11-06 13:31 | ECHO REPORT ---
ORDER DATE: 11/06/2019 INDICATION: New onset atrial fibrillation. FINDINGS: This is a limited study done to evaluate ejection fraction. 1. The left ventricle appears to be normal in size with an end-diastolic dimension of 3.8 cm. There is no evidence of left ventricular hypertrophy. Normal LV systolic function with an estimated EF greater than or equal to 55%. This is difficult to estimate accurately secondary to irregularity of rate. 2. The right ventricle appears normal in size with normal systolic function. 3. There is no mitral valve prolapse. Mitral annular calcification is noted. 4. No pericardial effusion seen. cc: Kenny Lowery MD
--- NOTE | 2019-11-06 13:43 | CARDIOLOGY CONSULTATION ---
DATE: 11/06/2019 CHIEF COMPLAINT ON PRESENTATION: Cough, shortness of breath. HISTORY OF PRESENT ILLNESS: Mr. Singh is an 83-year-old gentleman who for the last several days has been having trouble with subjective fevers at home, as well as occasionally productive cough. He experienced some episodes of shortness of breath and was evaluated in the emergency room. He subsequently was found to have what appears to be a left-sided pneumonia. During the course of the hospitalization, he had an episode of atrial fibrillation that continues at the time my examination. He was not symptomatic with any palpitations or worsening symptoms at the time. He has no previous history of this. PAST MEDICAL HISTORY: 1. Significant for coronary disease. This was identified via cardiac catheterization in 2005. He had mild to moderate coronary disease in the left anterior descending and circumflex vessels. He was treated with medical therapy on that study. 2. End-stage renal disease. 3. Diabetes. 4. Reflux disease. 5. Prostate cancer. 6. Hyperlipidemia. 7. Hypertension. 8. Obstructive sleep apnea. 9. History of TIA. 10. History of squamous cell skin cancer of the face. SOCIAL HISTORY: He is . He walks with a cane. No alcohol or illicit drugs or tobacco. FAMILY HISTORY: Mother had diabetes. Father had colon cancer, chronic kidney disease. REVIEW OF SYSTEMS: A 10-system review of systems is negative except for those things mentioned in HPI. PHYSICAL EXAMINATION: Vital Signs: He is afebrile. Heart rate 71. Initial blood pressures on presentation were quite elevated. More recently, his systolics have been around 100. General: He is in no acute distress. HEENT: Oropharynx is moist. Poor dentition. Eye examination is pink conjunctivae. White sclerae. Neck: Examination shows no obvious thyromegaly or thyroid tenderness. Cardiovascular: He is in an irregularly irregular rhythm that is rate controlled. He has no murmurs. He has no S3. He has no lower extremity edema. Chest: Exam sounds clear bilaterally. He has no increased work of breathing. Abdomen: Soft, nontender, nondistended. He has no obvious organomegaly. Skin: Exam is warm and dry throughout without any rashes. Neurological: He is moving all extremities well. He has no lateralizing deficits. PERTINENT DATA: CT scan of the chest shows minimal pneumonia in the lingula and left lower lobe with superimposed fibrosis, as well as bronchiectasis. His EKG on presentation shows sinus tachycardia, rate of 101 beats per minute. That was on the at 4:17 a.m. Subsequently he had an EKG on the at 2331 hours shows atrial fibrillation, rate of 119 beats per minute. His laboratory data shows a white count of 7.4, hematocrit 32, platelet count is 195,000. His sodium is 140, potassium 4. His BUN is 41, creatinine is 4.8. His cardiac enzymes have been negative. His lactate initially was 2.4, most recent was 1. ASSESSMENT: Mr. Singh is an 83-year-old gentleman who presented with pneumonia and was found to have an episode of atrial fibrillation during the hospitalization. PLAN: At this point, I will start him on Toprol 25 mg daily. His echocardiogram is currently pending. We will start him on Eliquis at 2.5 b.i.d. given his age and kidney function. Risks, benefits, alternatives to anticoagulation have been discussed with the patient. I will check a TSH in the morning. cc: Kenny Lowery MD
[2019-11-06] MEDS: NORVASC PO SCH ×2 (15:27→21:55)
[2019-11-06] MEDS: COZAAR PO SCH ×2 (15:27→21:56)
--- NOTE | 2019-11-06 16:23 | PROGRESS NOTE ---
DATE: 11/06/2019 INTERVAL HISTORY: No acute events overnight except he did develop atrial fibrillation with rapid ventricular rate with heart rate as high as 120 for which cardiology team was consulted who has started the patient on metoprolol and Eliquis. Currently, his heart rate is well controlled. SUBJECTIVE: Mr. Singh is feeling better. Denies chest pain, shortness of breath, or cough. Denies nausea, vomiting, or abdominal pain. We discussed about atrial fibrillation, stroke risk, bleeding risk, and he agreed with continuing with the Eliquis. I also discussed with him about GI bleed and intracranial hemorrhage issues. VITALS: Temperature 98 degrees, pulse 71, respiratory rate 15, blood pressure 130/60, he is saturating 98% on room air. PHYSICAL EXAMINATION: He is not in any acute distress. Oral cavity is moist. Lungs: Air entry bilaterally equal. No wheeze or rhonchi. Mild crackles in right infrascapular region. Cardiovascular: S1, S2 normal. No murmur, rub, or gallop. Abdomen: Soft, nontender. No hepatojugular reflux. He has mild bilateral lower extremity edema. LABS: Suggestive of resolution of leukocytosis, normocytic anemia, normal platelet count, elevated BUN and creatinine in the setting of chronic kidney disease. His blood glucose has been largely within acceptable range. MICROBIOLOGY: Influenza screen was negative. Blood cultures are in lab. ASSESSMENT AND PLAN: 1. Left lower lobe pneumonia leading to sepsis, status post intravenous fluids. Continue intravenous Zosyn. Follow up with the final blood culture results. Clinically, he seems to be getting better and his leukocytosis is improving. 2. His lactic acidosis has resolved. 3. History of insulin-dependent diabetes mellitus with hyperglycemia. Continue home insulin regimen. 4. History of essential hypertension, now better controlled on home amlodipine, losartan. 5. Chronic kidney disease stage 5, on hemodialysis Monday, Monday, Monday. Nephrology team has been consulted. 6. History of squamous cell skin cancer, status post radiation and now on immunotherapy. Oncology team on board. He will need outpatient followup. DISPOSITION: I am awaiting final results of the blood culture. If he continues to feel better, I would anticipate discharge in next 24 to 48 hours. Plan of care discussed with the patient. His questions have been answered. cc: Dusty Leyva MD
[2019-11-06] MEDS ORDERED: NS 2,000 ML MISC PRN (17:47)
[2019-11-06] MEDS ORDERED: HEPARIN IV PRN (17:47)
[2019-11-06] MEDS: XALATAN 0.005% OPH SOLN BOTH EYES SCH (21:55)
[2019-11-06] MEDS: ELIQUIS PO SCH (21:55)
[2019-11-06] MEDS: ZOCOR PO SCH (21:56)
[2019-11-07 05:22] LABS: BASO# 0.02 X1000 (0.0-0.2); BASO% 0.4 % (0.0-0.8); EOS# 0.42 X1000 (0.0-0.7); EOS% 7.5 % (0.0-10.0); HEMATOCRIT 33.8 % (42.0-52.0); HEMOGLOBIN 10.5 g/dL (14.0-18.0); IMM GRAN# 0.02 X1000 (0.0-0.04); IMM GRAN% 0.4 % (0.0-0.5); LYMPH# 1.16 X1000 (1.2-3.4); LYMPH% 20.6 % (20.5-51.1); MCH 28.8 PG (27-31); MCHC 31.1 g/dL (33-37); MCV 92.6 FL (81-99); MONO# 0.59 X1000 (0.11-0.59); MONO% 10.5 % (1.7-9.3); MPV 9.1 FL (7.4-10.4); NEUT# 3.41 X1000 (1.4-6.5); NEUT% 60.6 % (42.2-75.2); PLT 193 X1000 (130-400); RBC 3.65 XMIL (4.7-6.1); RDW 14.9 % (11.5-14.5); WBC 5.62 X1000 (4.8-10.8)
[2019-11-07] MEDS: ZOSYN 2.25 GM in NS 50 ML IV SCH ×2 (06:19→09:17)
[2019-11-07 06:27] LABS: ALB/GLOB RATIO 1.2; CALCIUM 8.5 mg/dL (8.8-10.2); CREATININE 3.3 mg/dL (0.7-1.2); POTASSIUM 3.4 mmol/L (3.5-5.1); TOTAL BILIRUBIN 0.16 mg/dL (0.20-1.00); TOTAL PROTEIN 5.5 g/dL (6.3-8.3)
[2019-11-07] MEDS: HUMULIN R SUBQ SCH ×2 (06:50→11:58)
[2019-11-07] MEDS: PRILOSEC PO SCH (06:53)
[2019-11-07] MEDS: DUONEB (A & A) INH PRN (08:28)
[2019-11-07] MEDS ORDERED: TOPROL XL PO SCH (09:00)
[2019-11-07] MEDS: COZAAR PO SCH (09:16)
[2019-11-07] MEDS: NORVASC PO SCH (09:16)
[2019-11-07] MEDS: ASPIRIN PO SCH (09:16)
[2019-11-07] MEDS: COMBIGAN OPHTH SOLN BOTH EYES SCH (09:16)
[2019-11-07] MEDS: ELIQUIS PO SCH (09:16)
[2019-11-07] MEDS: LANTUS INSULIN SUBQ SCH (09:17)
[2019-11-07 12:57] VITALS: BP 129/57
--- NOTE | 2019-11-07 15:48 | PROVIDER PROGRESS NOTE ---
Progress Note Subjective: Pt voices feeling better than yesterday. He denies any chest pain, nausea and vomiting, or shortness of breath. Objective: vitals temperature 97.6, pulse 74, respirations 18, blood pressure 136/61, 02 sat 96% on room air. 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 no JVD observed Cardiovascular: S1S2, regular rate and rhythm. No murmurs or gallops. Respiratory: clear anteriorly with equal air entry Abdomen: soft, tenderness to right upper quadrant, nondistended. Bowel sounds active : not inspected Extremities: trace edema to bilateral lower extremities Neurological: alert and oriented to person, place, and time. Labs: WBC 5.62, hemoglobin 10.5, hematocrit 33.5, platelet count 193, sodium 145, potassium 3.4, chloride 102, carbon dioxide 20, BUN 18, creatinine 3.3. Intake 1530, output 1500. Impression: Chronic kidney disease stage 5D. He had his routine hemodialysis treatment yesterday. No changes. Blood pressure. In target. Fluid volume. Euvolemic on exam. Anemia. In target. Electrolytes and acid base balance. Stable. Nutrition. Adequate. Ambulation. Up in room. Medication review
--- NOTE | 2019-11-07 16:43 | DISCHARGE SUMMARY ---
ADMISSION DATE: 11/05/2019 DISCHARGE DATE: 11/07/2019 DISCHARGE DISPOSITION: Home. DISCHARGE CONDITION: Hemodynamically stable. He denies chest pain, shortness of breath or cough. He denies nausea, vomiting, or abdominal pain. He is having regular bowel movement. He denies any urinary disturbance. On bedside monitor on the telemetry appears to be in normal sinus rhythm. He was discharged on oral antibiotics and he was advised to have outpatient follow-up with regular physician as well as the lamination technician. He was again discussed with the benefits versus risks of anticoagulation and was advised to look out for any signs of bleeding. His TSH was within normal limits next. DISCHARGE DIAGNOSES: 1. Left lower lobe pneumonia leading to sepsis. 2. Lactic acidosis. 3. Uncontrolled insulin-dependent diabetes mellitus with hyperglycemia. 4. New onset atrial fibrillation with rapid ventricular rate OTHER DIAGNOSES: 1. History of insulin-dependent diabetes mellitus type 2. 2. Chronic kidney disease stage 5 on Monday, Monday, Monday hemodialysis. 3. Chronic gastroesophageal reflux disease. 4. History of glaucoma. 5. Hyperlipidemia. 6. Hypertension. 7. History of squamous cell skin cancer status post radiation and now on immunotherapy. DISCHARGE MEDICATIONS: 1. Latanoprost ophthalmic solution both eyes at nighttime. 2. Melatonin 10 mg at nighttime. 3. Insulin glargine 15 units subcutaneously b.i.d. 4. Aspirin 81 mg daily. 5. Multivitamin 1 tablet daily. 6. Combigan ophthalmic solution 1 drop both eyes b.i.d. 7. Losartan 50 mg b.i.d. 8. Insulin lispro sliding scale based on carbohydrate intake at each meal. 9. Furosemide 20 mg daily. 10. Bimatoprost 1 drop b.i.d. 11. Amlodipine 2.5 mg b.i.d. 12. Simvastatin 20 mg at nighttime. 13. Vitamin D2 50,000 every 7 days. 14. Cefuroxime 500 mg every 12 hours, 7 tablets. 15. Apixaban 2.5 mg b.i.d., 90 tablets have been prescribed. 16. Omeprazole 20 mg daily, 30 capsules have been prescribed. 17. Metoprolol succinate extended release 25 mg daily, 30 tablets have been prescribed. VITALS: At the time of discharge, temperature 98.5 degrees, pulse respiratory 18, blood pressure 129/57 saturating 100% on room air. PHYSICAL EXAMINATION: General: Not in acute distress. HEENT: Oral cavity is moist. Lungs: Air entry bilaterally equal. No wheeze, rhonchi, or crackles. Cardiovascular: S1, S2 normal. No murmur or gallop. Abdomen: Soft, nontender. Extremities: No lower extremity edema except only mild. He has freckles and solar keratosis affecting his skin diffusely. SIGNIFICANT LABS AT THE TIME OF DISCHARGE: His WBC improved from 14,000 on presentation to 5000, hemoglobin 10.5, platelet 193,000. His potassium is 3.4. His BUN is 18, creatinine 3.3, blood glucose 199. Urine Legionella and streptococcal antigens were negative. Blood culture and influenza screen were negative. SIGNIFICANT IMAGING: Pulmonary arteriogram performed on November 05 did not have any evidence of pulmonary emboli. He had minimal pneumonia in the lingula and left lower lobe superimposed on fibrosis and bronchiectasis. Electrocardiogram on presentation had sinus tachycardia. However, on the night of presentation he went into atrial fibrillation with rapid ventricular rate with heart rate of 120. HOSPITAL COURSE SUMMARY: Mr. Singh is an 83-year-old man with past medical history of insulin-dependent diabetes mellitus, chronic kidney disease stage 5 on Monday, Monday, Monday hemodialysis, squamous cell cancer affecting skin on chemotherapy, who came in with chief complaints of fever, dry cough and substernal chest discomfort about 12 hours' duration. He also had 1 of the family members diagnosed with influenza recently. In the emergency room he was found to have a fever of 99.8 and leukocytosis of 14,000. He was also tachycardic with pulse of 100 and hypertensive with systolic blood pressure of 190. Hospitalist team was consulted for further management. On presentation, he did have elevated D-dimer to 1.01, so a CT scan angiography was performed which did not have pulmonary embolism, though he did have left lower lobe pneumonia. He was started on intravenous antibiotics and was admitted for further management. With intravenous antibiotics, his symptoms significantly improved. He did not have any more fever episodes, and leukocytosis had improved as well. He also received routine dialysis. At the time of discharge, his antibiotics were changed to oral, and he was deemed appropriate for discharge. He also developed an episode of atrial fibrillation with rapid ventricular rate, and cardiology team was consulted, who had started him on metoprolol following which his heart rate was well controlled and Eliquis for primary cerebrovascular accident prophylaxis. He was advised to have outpatient Cardiology followup with Dr. Lowery. He also had squamous cell cancer of skin, and he had received chemotherapy 1 week prior to presentation which he was receiving every 3 weeks. TIME SPENT: More than 30 minutes time was spent discharging the patient. Plan of care was extensively discussed with the patient, and his questions have been answered. cc: Dusty Leyva MD MTDD
[2019-11-07] MEDS ORDERED: CEFTIN PO SCH (21:00)
== END 2019-11-07 16:22 | disposition home or self-care (01) | DRG 871 ==
LOC: ED 04:05 → EDIPHOLD 10:10 → 1N 15:58
PROVIDERS: ATTEND Internal Medicine